=== PATIENT | male | born 1955 | race Caucasian/White ===

== ENCOUNTER 2018-12-01 05:48 | Observation (INO) | payer OTHER ==
--- NOTE | 2018-11-30 14:57 | HP ---
AMENDED REPORT NOW INCLUDES DESIGNATED COSIGNER CC: Dr. Livier Edwards; Dr. Luke Zimmerman * ADMISSION HISTORY AND PHYSICAL: DATE OF ADMISSION: 12/01/18 ATTENDING SURGEON: Dr. Jeferson Queen.* (DICTATED BY RUBY PEDROZA) CHIEF COMPLAINT: Colon polyp. HISTORY OF PRESENT ILLNESS: This is a generally healthy 63-year-old male, who underwent routine screening colonoscopy on 11/12/[address] Zimmerman. This was a followup from prior colonoscopy 5 years earlier. He has had no symptoms in terms of change in his bowel movements or specifically blood in the stool, etc. Findings at the time of colonoscopy included 11 polyps, 10 of which were removed and all benign by pathology. A large lesion at 80 cm from the anal verge was biopsied positive for tubulovillous adenoma and was tattooed for subsequent removal. There was no dysplasia in any of the lesions. There is no family history of colorectal cancer. The patient has also undergone EGD the same date related to GERD symptoms and findings of which included some erosive esophagitis in the distal esophagus and a small hiatal hernia. His omeprazole was increased to 40 mg daily. Of note, he did have some trauma to the uvula from that procedure, which has since improved. The patient was seen in the office by Dr. Queen on 11/20/18. Recommendation has been made for laparoscopic-assisted colon polypectomy with possible partial colectomy. This will also entail intraoperative colonoscopy for localization. Finally, the patient notes the presence of an umbilical hernia, which he did discuss with Dr. Queen and plan will be for primary repair of same at the time of the procedure. The patient understands the indications, risks, benefits and alternatives and would like to proceed as scheduled. PAST MEDICAL HISTORY: Obstructive sleep apnea (did not tolerate CPAP), GERD, colon polyps as noted above, arthritis. He also takes Adderall presumably for ADHD. PAST SURGICAL HISTORY: Previous surgeries include bilateral total knee arthroplasty with Dr. Orlando, prior bilateral knee arthroscopies, bilateral excision of varicose veins. No reported surgical or anesthesia complications. CURRENT MEDICATIONS: 1. Omeprazole 40 mg once daily. 2. Adderall 10 mg 1-1/2 tablets once daily. 3. Viagra or Cialis p.r.n. 4. Amoxicillin prophylaxis for dental procedures, post knee arthroplasty. 5. Tylenol With Codeine No. 3 p.r.n. (ranging from 0 to 2 tablets daily). 6. He also takes the following supplements: Multivitamin, B complex, vitamin B12, vitamin D3, fish oil, vitamin C, and zinc. DRUG ALLERGIES: None (he develops a rash from NEOPRENE topically). FAMILY HISTORY: Negative for anesthesia problems, bleeding or clotting disorders. SOCIAL HISTORY: The patient has tenants/roommates, but also will have his girlfriend helping him in the perioperative period. He is self-employed in construction. He denies use of tobacco. He drinks on average 1 drink per day. He occasionally uses edible marijuana, but not daily and no other recreational drug use. REVIEW OF SYSTEMS: General: No recent constitutional symptoms or acute illnesses. Weight has been stable. HEENT: No problems reported other than the uvula as noted above post EGD. Cardiovascular: No chest pain, palpitations, history of heart murmur, or hypertension. Respiratory: No history of asthma, chronic cough, or shortness of breath. GI: As above per HPI. He notes some increase in intestinal gas with the omeprazole. : No problems reported. Endocrine: No diabetes or thyroid dysfunction. PHYSICAL EXAMINATION GENERAL: Well-nourished, well-developed male, in no acute distress. VITAL SIGNS: Height 78 inches, weight 260 pounds, BMI 30. Temperature 98.2, blood pressure 122/84, pulse 72, respirations 18. HEENT: Pupils are equal, round, and reactive. EOMs intact. No conjunctival pallor. Oropharynx: Teeth in good repair. No intraoral lesions. Mucous membranes moist. NECK: No lymphadenopathy, thyromegaly or masses. LUNGS: Clear to auscultation. No rales or wheezes. HEART: Regular rate and rhythm. No murmur noted. ABDOMEN: Visible umbilical hernia even in the supine position with a fascial defect measuring approximately 2 fingertip breadth width. It is nontender and easily reducible. When he sits up, he demonstrates diastasis recti. The abdomen is otherwise soft, nontender, and without palpable masses or organomegaly. GENITALIA AND RECTAL: Not done (recent groin check for hernias was normal by his PCP). EXTREMITIES: No edema. NEUROLOGICAL: Grossly intact. SKIN: Warm and dry. No suspicious rashes or lesions. IMPRESSION: Colon polyp. PLAN: Laparoscopic-assisted colon polypectomy; possible partial colectomy; intraoperative colonoscopy. RUBY PEDROZA [id number] #: [id number] [facility] CENTERMiriam
[~2018-12-01 05:48] MED LIST: Buffered Lidocaine 1% SYRIN* 1 ML/SYRINGE INTRADERM ONE; ERTApenem(*) 1 GM in NS 0.9% 50 ML* 50 ML IVPB SCH
--- OUTSIDE RECORDS SUMMARY | 2018-12-01 05:52 | XMS REPORT | Continuity of Care Document ---
:1955 External Reference #:[id number] Author Name Kandy Moe Care Team Providers Name Role Phone Livier Edwards MD Primary Care Physician Unavailable Payers Type Date Identification Numbers Payment Provider Subscriber Effective: Policy Number: [id number] [employer] Khadijah Hamm 2016 Medicaid PayID: [id number] [address] [address] [place] [address] Effective: 2015 Policy Number: [id number] [employer] Khadijah Pineda Prelizziestmanda Expires: 2016 PayID: [id number] [address] [address] [place] [address] Effective: 2015 Policy Number: [id number] Medicaid Khadijah Hamm Expires: 2016 Group Name: 1 2 B N [address] PayID: [id number] [place] [address] Advance Directives Description No Information Available Problems Date Description Provider Status Onset: 01/18/2016 Dyspnea Maxi Contreras M.D., Active IAN GRIEDR Onset: 02/02/2016 Localized, primary osteoarthritis Betsy Orlando M.D. Active Onset: 02/19/2016 Disturbance in sleep behavior Tiffany Faustin MD Active Onset: 02/26/2016 Thoracic aortic ectasia Maxi Contreras M.D., Active IAN GRIDER Onset: 05/13/2016 Obstructive sleep apnea syndrome Tiffany Faustin MD Active Onset: 05/13/2016 Obesity Tiffany Faustin MD Active Onset: 05/31/2016 Arthroplasty of knee Betsy Orlando M.D. 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 Family History Date Family Member(s) Problem(s) Comments General non contributory General Heart Disease General Hypertension Father due to Brain Cancer () - age 40, Gliobastoma Mother Varicose veins Mother Arthritis Siblings 1 Brother HTN - at age 65 cardiac issues recently First Brother due to Heart () - Age 65 - Had sleep Disease/Stroke apnea as well First Brother Unknown possible [place] or CVA, sudden age 65 First Brother Obesity First Brother Sleep Apnea First Brother Hypertension Social History Type Date Description Comments Sex Unknown Marital Status Single Lives With Alone 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[employer]) Tobacco Use Start: Unknown Never Smoked Cigarettes ETOH Use Occasionally consumes alcohol 4-8/week Tobacco Use Start: Unknown Patient has never smoked Recreational Drug Use Denies Drug Use Smoking Status Reviewed: 11/30/18 Patient has never smoked Exercise Type/Frequency Exercises regularly Allergies, Adverse Reactions, Alerts Date Description Reaction Status Severity Comments 10/13/2013 NKDA Active 11/30/2018 Neoprene Active rash Medications Medication Date Status Form Strength Qnty SIG Indications Ordering Provider Hydrocodone-Og 11/23/ Active Tablets 5-325mg 12tab 1 or 2 Delmy Childs taminophen 2019 s tablets by MD Chad mouth every 4-6 hours as needed for moderately severe pain Flagyl 11/23/ Active Tablets 500mg 3tabs 1 tab by Delmy Childs 2019 mouth at MD Chad 1:00 at night & 7:00 at night the day before surgery and at 7:00 in the morning the day of surgery Neomycin 11/23/ Active Tablets 500mg 6tabs 2 tabs by Delmy Childs Sulfate 2019 mouth at MD Chad 1:00 at night & 7:00 at night the day before surgery, and at 7:00 in the morning the day of surgery Peg-[id number]/Electr 11/23/ Active Solution 236gm 4000m as directed Delmy Childs olytes 2019 Rec l MD Chad Vitamin D 02/11/ Active Tablets 1000Unit by mouth Maxi Beaulieu 2017 everyday Shubham Contreras, [facility], FASMT Amoxicillin 04/03/ Active Capsules 500mg 4caps take 4 Z47.1 Betsy 2016 pills, 2 g Darion, 1 hour M.D. before dental or gi procedure Fish Oil 02/15/ Active Capsules 1 by mouth Unknown 2016 every day Vitamin B / Active Tablets 1 by mouth Unknown Complex 0000 every day Multivitamin / Active Tablets 1 by mouth Unknown Adult 0000 every day Adderall / Active Tablets 10mg 1-2 tablets Unknown 0000 in afternoon as directed Vitamin C / Active Daily Unknown 0000 Zinc / Active Daily Unknown 0000 Vitamin B-12 / Active Tablets 1 by mouth Unknown 0000 every day Natural Omeprazole / Active Capsules 40mg 1 by mouth Unknown 0000 DR every day Percocet 08/16/ Hx Tablets 5-325mg 90tab 1-2 tabs po Betsy 2015 s hs prn as Darion, needed M.D. MS Contin 07/19/ Hx Tablets ER 15mg 20tab 1 by mouth 7.12 Jose Elias 2015 s at bedtime Damien, 10/09/ M.D. 2015 Warfarin Sodium 07/19/ Hx Tablets 2mg 60tab 1 tablet by 7.12 Betsy 2015 mouth Darion, 10/08/ daily, or M.D. 2015 as dosed per md/visiting nurse service. do not start until after surgery. Colace 07/19/ Hx Capsules 100mg 90cap 1 by mouth M17.12 Betsy 2015 up to 3 Darion, 10/09/ times a day M.D. 2015 as needed for constipatio n. Oxycontin 03/10/ Hx Tab ER 12H 10mg 30tab 1 tab by Jose Elias 2015 - Abuse-Det s mouth twice Damien, 03/10/ a day as M.D. 2016 needed Oxycodone HCL 03/10/ Hx Tablets 5mg 90tab 1-2 tabs by Betsy 2015 s mouth every Darion, 12 hours as M.D. 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 2015 as needed for pain. Colace 02/25/ Hx Capsules 100mg 90cap 1 by mouth M17.11 2015 s up to 3 Bordoni, 05/30/ times a day TEACHER ASST 2015 as needed for constipatio n. Warfarin Sodium 02/25/ Hx Tablets 2mg 60tab 1 tablet by M17.11 2015 s mouth Bordoni, 05/30/ daily, or TEACHER ASST 2015 as dosed per md/visiting nurse service. do not start until after surgery. No Active 12/27/ Hx Unknown Medications 2013 - 2013 Tylenol/Codeine 04/20/ Hx Tablets 300-30mg 40tab 1-2 po q Dirk #3 2011 - s 4-6 hr prn Shantell, 12/27/ pain M.D. 2013 Acetaminophen-C / Hx 1 tab at Unknown odeine #3 0000 - bedtime as 05/30/ needed 2015 Ibuprofen / Hx Tablets 200mg as needed Unknown 0000 - 2015 Vitamin D3 / Hx Tablets 2000Unit 1 by mouth Unknown Super Strength 0000 - every day 2016 Cialis / Hx Tablets 10mg every day Unknown 0000 as needed Gabapentin / Hx Capsules 100mg 1-3 as Unknown 0000 - needed for 11/19/ restless 2016 legs at bedtime Dexamethasone / Hx Tablets 1mg 1 tab at Unknown 0000 - night as 01/11/ needed 2016 Medications Administered in Office Medication Date Status Form Strength Qnty SIG Indications Ordering Provider Celestone 3 mg Administered Injection Jose Elias and 3mg 017 MD Alexey Celestone 3 mg Administered Injection Jose Elias and 3mg 017 MD Alexey Inj, Administered Injection Maxi Beaulieu Regadenoson, 016 Ben, 0.1 MG M.D., F[place], FASNC Technetium TC Administered Injection Maxi Beaulieu 99M 016 Nikole Contreras M.D., F[place], Per Unit Dose FASNC Up To 40 Millicuries Depomedrol Administered Injection Dirk Shantell, 80MG 015 M.D. Depomedrol Administered Injection Dirk Shantell, 80MG 014 M.D. Depomedrol Administered Injection Alvarado, Lien, 80MG 010 PA Depomedrol Administered Injection Alvarado, Lien, 40MG 009 RUBY Immunizations Description No Information Available Vital Signs Date Vital Result Comment 11/30/2018 10:48am Height 78 inches 6'6" Weight 260.00 lb Heart Rate 72 /min BP Systolic Sitting 122 mmHg BP Diastolic Sitting 84 mmHg Respiratory Rate 18 /min Body Temperature 98.2 F BMI (Body Mass Index) 30.0 kg/m2 11/20/2018 10:58am Height 78 inches 6'6" Weight 265.00 lb Heart Rate 88 /min BP Systolic 150 mmHg BP Diastolic 92 mmHg Respiratory Rate 18 /min Body Temperature 98.5 F BMI (Body Mass Index) 30.6 kg/m2 10/31/2017 8:35am Height 78 inches 6'6" Heart Rate 62 /min BP Systolic 122 mmHg BP Diastolic 62 mmHg Respiratory Rate 18 /min Body Temperature 96.9 F Pain Level 3 10/01/2017 9:27am Height 78 inches 6'6" Weight 250.00 lb Heart Rate 60 /min BP Systolic 130 mmHg BP Diastolic 72 mmHg Respiratory Rate 16 /min Body Temperature 97.5 F Pain Level 4 BMI (Body Mass Index) 28.9 kg/m2 02/12/2017 8:22am Height 78 inches 6'6" Weight 263.00 lb Heart Rate 68 /min BP Systolic Sitting 132 mmHg Lue reg cuff BP Diastolic Sitting 80 mmHg Lue reg cuff BP Systolic Standing 128 mmHg Lue reg cuff BP Diastolic Standing 84 mmHg Lue reg cuff Respiratory Rate 16 /min BMI (Body Mass Index) 30.4 kg/m2 Ejection Fraction 60-65% 01/28/2017-echo 01/13/2017 8:10am Height 78 inches 6'6" Weight 250.00 lb Heart Rate 81 /min BP Systolic 122 mmHg BP Diastolic 68 mmHg Body Temperature 96.6 F BMI (Body Mass Index) 28.9 kg/m2 10/09/2016 3:35pm Height 78 inches 6'6" Weight 240.00 lb Pain Level 2 2-4 BMI (Body Mass Index) 27.7 kg/m2 09/06/2016 1:18pm Heart Rate 93 /min BP Systolic 116 mmHg BP Diastolic 76 mmHg Pain Level 3 08/09/2016 11:37am Heart Rate 83 /min BP Systolic 119 mmHg BP Diastolic 65 mmHg Pain Level 5 07/19/2016 1:33pm Height 78 inches 6'6" Weight 250.00 lb Heart Rate 93 /min BP Systolic 118 mmHg BP Diastolic 78 mmHg Pain Level 4 BMI (Body Mass Index) 28.9 kg/m2 05/31/2016 11:18am Height 78 inches 6'6" Weight 250.00 lb Pain Level 2 BMI (Body Mass Index) 28.9 kg/m2 05/13/2016 8:03am Height 78 inches 6'6" Weight 250.00 lb Heart Rate 88 /min BP Systolic 120 mmHg BP Diastolic 78 mmHg Respiratory Rate 14 /min O2 % BldC Oximetry 98 % BMI (Body Mass Index) 28.9 kg/m2 04/03/2016 9:51am Height 78 inches 6'6" Weight 250.00 lb Respiratory Rate 16 /min Pain Level 5 BMI (Body Mass Index) 28.9 kg/m2 03/20/2016 9:54am Height 78 inches 6'6" Weight 248.00 lb Body Temperature 97.0 F Pain Level 6 BMI (Body Mass Index) 28.7 kg/m2 02/26/2016 1:11pm Height 78 inches 6'6" Weight 248.00 lb with showed Heart Rate 82 /min BP Systolic Sitting 114 mmHg L arm reg cuff BP Diastolic Sitting 72 mmHg L arm reg cuff BP Systolic Standing 116 mmHg BP Diastolic Standing 78 mmHg BMI (Body Mass Index) 28.7 kg/m2 Ejection Fraction 55-60% 02/01/16 02/26/2016 9:22am Height 78 inches 6'6" Weight 250.00 lb BP Systolic 110 mmHg BP Diastolic 78 mmHg Pain Level 3 BMI (Body Mass Index) 28.9 kg/m2 02/19/2016 10:49am Height 78 inches 6'6" Weight 250.00 lb Heart Rate 90 /min BP Systolic Sitting 130 mmHg BP Diastolic Sitting 76 mmHg Respiratory Rate 18 /min O2 % BldC Oximetry 94 % BMI (Body Mass Index) 28.9 kg/m2 Neck Circumference in inches 17.5 02/02/2016 1:16pm Height 78 inches 6'6" Weight 250.00 lb Heart Rate 77 /min BP Systolic 118 mmHg BP Diastolic 77 mmHg BMI (Body Mass Index) 28.9 kg/m2 01/18/2016 12:40pm Height 78 inches 6'6" Weight 252.00 lb w/o shoes Heart Rate 108 /min reg BP Systolic 120 mmHg Rue, lg cuff BP Diastolic 76 mmHg Rue, lg cuff BP Systolic Sitting 120 mmHg Lue, lg cuff BP Diastolic Sitting 76 mmHg Lue, lg cuff BP Systolic Standing 110 mmHg Lue BP Diastolic Standing 80 mmHg Lue Respiratory Rate 16 /min BMI (Body Mass Index) 29.1 kg/m2 01/16/2015 8:53am Height 78 inches 6'6" Weight 240.00 lb Heart Rate 83 /min BMI (Body Mass Index) 27.7 kg/m2 03/07/2014 9:17am Height 78 inches 6'6" Weight 250.00 lb Heart Rate 89 /min BP Systolic 127 mmHg BP Diastolic 82 mmHg BMI (Body Mass Index) 28.9 kg/m2 12/27/2013 8:45am Height 78 inches 6'6" Weight 260.00 lb Heart Rate 101 /min BP Systolic 125 mmHg BP Diastolic 76 mmHg BMI (Body Mass Index) 30.0 kg/m2 10/13/2013 3:26pm Height 78 inches 6'6" Weight 250.00 lb Heart Rate 75 /min BP Systolic 137 mmHg BP Diastolic 88 mmHg BMI (Body Mass Index) 28.9 kg/m2 Results Test Date Facility Test Result H/L Range Note Inr/Protime 07/19/2016 [facility] Inr 0.94 N 0.89-1.[address] [place] [address] [phone] Laboratory test 07/19/2016 [facility] Partial 27.7 seconds N 26.0-36.[address] [place] [address] PTT [phone] CBC No Diff 07/19/2016 [facility] White Blood 6.0 10^3/uL N 3.5-10.[address] [place] [address] [phone] Red Blood Count 5.22 10^6/uL N 4.0-5.4 Hemoglobin 15.5 g/dL N 14.0-18.0 Hematocrit 45 % N 42-52 Mean Corpuscular Volume 87 fL N 80-94 Mean Corpuscular Hemoglobin 30 pg N 27-31 Mean Corpuscular HGB Conc 34 g/dL N 31-36 Red Cell Distribution Width 15 % N 10.5-15 Platelet Count 176 10^3/uL N 150-450 Mean Platelet Volume 9 um3 N 7.4-10.4 Basic Metabolic Panel 07/19/2016 [facility] Sodium 138 mmol/L N 133-[address] [place] [address] [phone] Potassium 3.9 mmol/L N 3.5-5.0 Chloride 104 mmol/L N 101-111 Co2 Carbon Dioxide 26 mmol/L N 22-32 Anion Gap 8 mmol/L N 2-11 Glucose 85 mg/dL N 70-100 Blood Urea Nitrogen 17 mg/dL N 6-24 Creatinine 0.91 mg/dL N 0.67-1.17 BUN/Creatinine Ratio 18.7 N 8-20 Calcium 9.5 mg/dL N 8.6-10.3 Egfr Non- 85.3 N >60 Egfr 109.7 N >60 1 Urinalysis Profile 07/19/2016 [facility] Urine Color Lisa [address] [place] [address] [phone] Urine Appearance Clear N Urine Specific [place] 1.031 High 1.010-1.030 Urine pH 5.0 N 5-9 Urine Urobilinogen Negative N Negative Urine Ketones Trace Abnormal Negative Urine Protein Negative N Negative Urine Leukocytes Negative N Negative Urine Blood Negative N Negative Urine Nitrite Negative N Negative Urine Bilirubin Negative N Negative Urine Glucose Negative N Negative Type & Screen 07/19/2016 [facility] Patient Blood Type AB Negative N [address] [place] [address] [phone] Antibody Screen NEGATIVE N Urine Culture And 07/19/2016 [facility] Urine Culture SEE RESULT [address] [place] [address] [phone] CBC No Diff 02/26/2016 [facility] White Blood 3.5 10^3/uL N 3.5-[address] [place] [address] [phone] Red Blood Count 4.76 10^6/uL N 4.0-5.4 Hemoglobin 15.0 g/dL N 14.0-18.0 Hematocrit 44 % N 42-52 Mean Corpuscular Volume 91 fL N 80-94 Mean Corpuscular Hemoglobin 32 pg High 27-31 Mean Corpuscular HGB Conc 35 g/dL N 31-36 Red Cell Distribution Width 13 % N 10.5-15 Platelet Count 195 10^3/uL N 150-450 Mean Platelet Volume 9 um3 N 7.4-10.4 Inr/Protime 02/26/2016 [facility] Inr 0.97 N 0.89-1.[address] [place] [address] [phone] Laboratory test 02/26/2016 [facility] Partial 30.1 seconds N 26.0-36.[address] [place] [address] PTT [phone] Urinalysis 02/26/2016 [facility] Urine Color [place] [address] [phone] Urine Appearance Cloudy N Urine Specific [place] 1.017 N 1.010-1.030 Urine pH 5.0 N 5-9 Urine Urobilinogen Negative N Negative Urine Ketones Negative N Negative Urine Protein Negative N Negative Urine Leukocytes Negative N Negative Urine Blood Negative N Negative Urine Nitrite Negative N Negative Urine Bilirubin Negative N Negative Urine Glucose Negative N Negative Urine Culture And 02/26/2016 [facility] Urine Culture SEE RESULT [address] [place] [address] [phone] Type & Screen 02/26/2016 [facility] Patient Blood AB Negative [address] [place] [address] [phone] Antibody Screen NEGATIVE N Comp Metabolic Panel 02/26/2016 [facility] Sodium 138 mmol/L N 133-[address] [place] [address] [phone] Potassium 4.0 mmol/L N 3.5-5.0 Chloride 104 mmol/L N 101-111 Co2 Carbon Dioxide 26 mmol/L N 22-32 Anion Gap 8 mmol/L N 2-11 Glucose 103 mg/dL High 70-100 Blood Urea Nitrogen 12 mg/dL N 6-24 Creatinine 1.01 mg/dL N 0.67-1.17 BUN/Creatinine Ratio 11.9 N 8-20 Calcium 9.5 mg/dL N 8.6-10.3 Total Protein 7.4 g/dL N 6.4-8.9 Albumin 4.7 g/dL N 3.2-5.2 Globulin 2.7 g/dL N 2-4 Albumin/Globulin Ratio 1.7 N 1-3 Total Bilirubin 0.40 mg/dL N 0.2-1.0 Alkaline Phosphatase 44 U/L N 34-104 Alt 25 U/L N 7-52 Ast 25 U/L N 13-39 Egfr Non- 75.9 N >60 Egfr 97.6 N >60 4 1 Because ethnic data is not always readily available, this report includes an eGFR for both -Americans and non- Americans. The National Kidney Disease Education Program (NKDEP) does not endorse the use of the MDRD equation for patients that are not between the ages of 18 and 70, are , have extremes of body size, muscle mass, or nutritional status, or are non- or non-. According to the National Kidney Foundation, irrespective of diagnosis, the stage of the disease is based on the level of kidney function: Stage Description GFR(mL/min/1.73 m(2)) 1 Kidney damage with normal or decreased GFR 90 2 Kidney damage with mild decrease in GFR 60-89 3 Moderate decrease in GFR 30-59 4 Severe decrease in GFR 15-29 5 Kidney failure <15 (or dialysis) 2 SEE RESULT BELOW Name: NORISKHADIJAH : [address]: Betsy Orlando MD Acct: [id number] Unit: [id number] AGE: 61 Location: [facility] Re07/19/16 SEX: M Status: REG REF SPEC: [id number] RORO: 07/19/16-1525 [facility] DR: Betsy Orlando MD REQ: [id number] RECD: 07/19/16 STATUS: COMP _ SOURCE: URINE SPDESC: ORDERED: Urine Culture QUERIES: Urine Source: Random Procedure Result Reported Site Urine Culture Final 07/21/16- 918 ML No Growth (<1,000 CFU/mL) * ML - MAIN LAB ([facility]) . END OF REPORT * ML=Testing performed at Main Lab DEPARTMENT OF PATHOLOGY, [address] [place] [address] Petr Colbert M.D. Director [facility] # [id number] 3 SEE RESULT BELOW Name: KHADIJAH HAMM : [address]: Betsy Orlando MD Acct: [id number] Unit: [id number] AGE: 60 Location: PAT Re02/26/16 SEX: M Status: REG REF SPEC: [id number] RORO: 02/26/16 [facility] DR: Betsy Orlando MD REQ: [id number] RECD: 02/26/16 STATUS: MOISE MEDINA DR: Livier Edwards MD _ SOURCE: URINE SPDESC: ORDERED: Urine Culture Procedure Result Reported Site Urine Culture Final 02/27/16- 1634 ML No Growth (<1,000 CFU/mL) * ML - MAIN LAB ([facility]) . END OF REPORT * ML=Testing performed at Main Lab DEPARTMENT OF PATHOLOGY, [address] [place] [address] Petr Colbert M.D. Director [facility] # [id number] 4 Because ethnic data is not always readily available, this report includes an eGFR for both -Americans and non- Americans. The National Kidney Disease Education Program (NKDEP) does not endorse the use of the MDRD equation for patients that are not between the ages of 18 and 70, are , have extremes of body size, muscle mass, or nutritional status, or are non- or non-. According to the National Kidney Foundation, irrespective of diagnosis, the stage of the disease is based on the level of kidney function: Stage Description GFR(mL/min/1.73 m(2)) 1 Kidney damage with normal or decreased GFR 90 2 Kidney damage with mild decrease in GFR 60-89 3 Moderate decrease in GFR 30-59 4 Severe decrease in GFR 15-29 5 Kidney failure <15 (or dialysis) Procedures Date Code Description Status 09/28/2018 96573 Allergy Test, Patch Or Application Completed 09/28/2018 23054 Allergy Test, Patch Or Application Completed 10/01/2017 77859 Inject/Drain Joint/Bursa Major W/O US Completed 02/12/2017 80377 EKG Tracing & Interpretation Completed 01/28/2017 12999 ECHO Transthoracic, Real-Time 2D With Doppler And Color Completed Flow 07/25/2016 66581 TKR Total Knee Replacement Completed 07/25/2016 19860 TKR Total Knee Replacement Completed 07/19/2016 15221 EKG, Interpretation Only Completed 05/01/2016 22395 Sleep Study Unattended,HRT Rate,Oxygen Sat,Resp Completed Effort/Airflow 03/07/2016 15630 TKR Total Knee Replacement Completed 03/07/2016 98758 TKR Total Knee Replacement Completed 02/19/2016 52362 Stress Test Completed 02/19/2016 54802 Myocardial Perfusion Imaging Tomographic (Spect) Multiple Completed Studies 02/01/2016 35091 ECHO Transthoracic, Real-Time 2D With Doppler And Color Completed Flow 01/18/2016 51759 EKG Tracing & Interpretation Completed 01/16/2015 72525 Inject/Drain Joint/Bursa Major W/O US Completed 03/07/201407955 Inject/Drain Joint/Bursa Major W/O US Completed 10/13/2013 84720 Rad Exam; Ankle Comp Completed 10/13/2013 71877 Xray Knee 3 Views Completed 10/13/2013 02069 Xray Knee 3 Views Completed 10/13/2013 59152 Rad Exam; Knee, Ap&L Completed 10/13/2013 98017 Rad Exam; Knee, Ap&L Completed 01/02/2011 62388 Rad Exam; Both Knees, Standing Ap Completed 04/18/201084761 Inject/Drain Joint/Bursa Major W/O US Completed 04/18/201019064 Inject/Drain Joint/Bursa Major W/O US Completed 10/09/200954904 Inject/Drain Joint/Bursa Major W/O US Completed 10/09/200948294 Inject/Drain Joint/Bursa Major W/O US Completed 09/15/2009 55909 Rad Exam; Both Knees, Standing Ap Completed Encounters Type Date Location Provider Dx Diagnosis Office Visit 11/20/2018 [facility], 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 right shoulder M19.212 Secondary osteoarthritis, left shoulder S46.091A Inj musc/tend the rotator cuff of right shoulder, init S46.092A Inj musc/tend the rotator cuff of left shoulder, init Office Visit 10/01/2017 Orthopedic Jose Elias M19.211 Secondary 9:00a Services Of MD Alexey osteoarthritis, C.M.A. right shoulder M19.212 Secondary osteoarthritis, left shoulder S46.091A Inj musc/tend the rotator cuff of right shoulder, init S46.092A Inj musc/tend the rotator cuff of left shoulder, init Office Visit 04/08/2017 10:10a [facility] John Jha MD L72.0 Epidermal cyst L57.0 Actinic keratosis D22.5 Melanocytic nevi of trunk L82.1 Other seborrheic keratosis Office Visit 02/12/2017 8:45a [facility] Maxi Beaulieu I77.810 Thoracic aortic Of Sheri Contreras M.D., ectasia CHEO, [facility] Office Visit 01/13/2017 8:00a Orthopedic Betsy Orlando, Z47.1 Aftercare Services Of Shubham following joint C.M.A. replacement surgery M25.562 Pain in left knee Z96.652 Presence of left artificial knee joint M17.12 Unilateral primary osteoarthritis, left knee Office Visit 05/31/2016 11:15a Orthopedic Services Betsy Orlando M25.562 Pain in left Of C.M.A. M.D. knee M17.12 Unilateral primary osteoarthritis, left knee Z96.651 Presence of right artificial knee joint Office Visit 05/13/2016 8:00a Pulmonology And Tiffany G47.33 Obstructive sleep Sleep Services Of MD Ramin apnea (adult) [facility] (pediatric) E66.09 Other obesity due to excess calories [facility].810 Thoracic aortic 1:15p Of Sheri Contreras M.D., diego GRIDER, [facility] Office Visit 02/19/2016 Pulmonology And Tiffany G47.9 Sleep disorder, 10:30a Sleep Services Of MD Ramin unspecified [facility] Office Visit 02/02/2016 Orthopedic Betsy Orlando, M17.0 Bilateral primary 1:00p Services Of Shubham osteoarthritis of C.M.A. knee M25.562 Pain in left knee M25.561 Pain in right knee Office Visit 01/18/2016 1:00p [facility] Maxi Beaulieu R06.02 Shortness of Of [facility] Shubham Contreras, breath FAC, [facility] Office Visit 01/16/2015 8:15a Orthopedic Sage Stinson 716.96 Arthropathy Unspec Services Of M.D. Lower Leg C.M.A. 715.36 Osteoarthrosis Localzd Not Spec Prime Or 2Ndy Lower Leg 719.06 Effusion Joint Lower Leg Office Visit 03/07/2014 9:00a Orthopedic Sage Stinson 716.96 Arthropathy Services Of M.D. Unspec Lower Leg C.M.A. Office Visit 12/27/2013 8:30a Orthopedic Sage Stinson 719.46 Pain Joint Lower Services Of M.D. Leg C.M.A. Office Visit 10/13/2013 3:00p Orthopedic Jose Elias 719.46 Pain Joint Lower Services Of Shubham Quezada Leg C.M.A. 715.96 Osteoarthrosis Unspec Genlzd Or Localized Lower Leg 736.79 Deform[facility] Ankle & Foot Other Acquired Office Visit 01/02/2011 2:45p Orthopedic Sage Stinson 716.96 Arthropathy Unspec Services Of M.D. Lower Leg C.M.A. Office Visit 04/18/2010 3:30p Orthopedic Elise Alvarado 716.96 Arthropathy Unspec Services Of [place] Lower Leg C.M.A. Office Visit 09/15/2009 3:00p Orthopedic Elise Alvarado 716.96 Arthropathy Unspec Services Of [place] Lower Leg C.M.A. Plan of Treatment Future Appointment(s):12/01/2018 7:30 am - Dem[facility] [facility] 7:30 am - Jeferson Queen MD, FACS at [facility]01/25/2019 7:30 am - Tiffany Faustin MD at [facility]11/30/2018 - Dwight Bennett, PAD12.3 Benign neoplasm of transverse qhyqlG67.818 Encounter for other preprocedural examination
--- OUTSIDE RECORDS SUMMARY | 2018-12-01 05:52 | XMS REPORT | Continuity of Care Document ---
:1955 External Reference #:[id number] Author Name Kandy Moe Care Team Providers Name Role Phone Livier Edwards MD Primary Care Physician Unavailable Payers Type Date Identification Numbers Payment Provider Subscriber Effective: Policy Number: [id number] [employer] Khadijah Hamm 2016 Medicaid PayID: [id number] [address] [address] [place] [address] Effective: 2015 Policy Number: [id number] [employer] Khadijah Pineda Prelizziestmanda Expires: 2016 PayID: [id number] [address] [address] [place] [address] Effective: 2015 Policy Number: [id number] Medicaid Khadijah Hamm Expires: 2016 Group Name: 1 2 B N [address] PayID: [id number] [place] [address] Advance Directives Description No Information Available Problems Date Description Provider Status Onset: 01/18/2016 Dyspnea Maxi Contreras M.D., Active IAN GRIDER Onset: 02/02/2016 Localized, primary osteoarthritis Betsy Orlando [...] apnea as well First Brother Unknown possible AL or CVA, sudden age 65 First Brother Obesity First Brother Sleep Apnea First Brother Hypertension Social History Type Date Description Comments Sex Unknown Marital Status Single Lives With Alone Occupation [employer] Tobacco Use Start: Unknown Never Smoked Cigarettes ETOH Use Occasionally consumes alcohol 4-8/week Tobacco Use Start: Unknown Patient has never smoked Recreational Drug Use Denies Drug Use Smoking Status Reviewed: 11/20/18 Patient has never smoked Exercise Type/Frequency Exercises regularly Allergies, Adverse Reactions, Alerts Date Description Reaction Status Severity Comments 10/13/2013 NKDA Active 12/27/2013 Latex Active Medications Medication Date Status Form Strength Qnty SIG Indications Ordering Provider Vitamin D 02/11/ Active Tablets 1000Unit by mouth Maxi Beaulieu 2017 everyday Shubham Contreras, [facility], [facility] Amoxicillin 04/03/ Active Capsules 500mg 4caps take 4 Z47.1 2015 pills, 2 g Darion, 1 hour M.D. before dental or gi procedure Fish Oil 02/15/ Active Capsules 1 by mouth Unknown 2016 every day Vitamin B /00/ Active Tablets 1 by mouth Unknown Complex 0000 every day Cialis 00/ Active Tablets 10mg every day Unknown 0000 as needed Multivitamin 00/00/ Active Tablets 1 by mouth Unknown Adult 0000 every day Adderall 0000/ Active Tablets 10mg 1-2 Unknown 0000 tablets in afternoon as directed Vitamin C 00/ Active Daily Unknown 0000 Zinc 0000/ Active Daily Unknown 0000 Percocet 08/16/ Hx Tablets 5-325mg 90tabs 1-2 tabs 2015 po qhs prn Darion, as needed M.D. MS Contin 07/19/ Hx Tablets ER 15mg 20tabs 1 by mouth M17.12 Jose Elias 2015 - at bedtime Damien 10/09/ MvAi 2015 Warfarin Sodium 07/19/ Hx Tablets 2mg 60tabs 1 tablet M17.12 2015 - by mouth Darion, 10/08/ daily, or M.D. 2015 as dosed per md/reji g nurse service. do not start until after surgery. Colace 07/19/ Hx Capsules 100mg 90caps 1 by mouth M17.12 Besty 2015 - up to 3 Darion, 10/09/ times a M.D. 2015 day as needed for constipati on. Oxycontin 03/10/ Hx Tab ER 12H 10mg 30tabs 1 tab by Jose Elias 2015 - Abuse-Det mouth Damien, 03/10/ twice a M.D. 2015 day as needed Oxycodone HCL 03/10/ Hx Tablets 5mg 90tabs 1-2 tabs Betsy 2015 by mouth Darion, every 12 M.D. hours as needed for break thru pain MS Contin 03/10/ Hx Tablets ER 15mg 28tabs 1 by mouth Fani 2015 - twice a Bordoni, 04/03/ day TELECOMMUNICATIONS OPERATOR 2015 Oxycodone-Aceta 02/25/ Hx Tablets 5-325mg 90tabs 1-2 by 7.11 Betsy ortiz 2015 - mouth Darion, 10/09/ every 4-6 M.D. 2016 hours as needed for pain. Colace 02/25/ Hx Capsules 100mg 90caps 1 by mouth 7.11 Fani 2015 - up to 3 Bordoni, 05/30/ times a TELECOMMUNICATIONS OPERATOR 2015 day as needed for constipati on. Warfarin Sodium 02/25/ Hx Tablets 2mg 60tabs 1 tablet 7.11 Fani 2015 - by mouth Bordoni, 05/30/ daily, or TELECOMMUNICATIONS OPERATOR 2015 as dosed per md/reji g nurse service. do not start until after surgery. No Active 12/27/ Hx Unknown Medications 2013 - 2013 Tylenol/Codeine 04/20/ Hx Tablets 300-30mg 40tabs 1-2 po q Dirk #3 2011 - 4-6 hr prn Shantell, 12/27/ pain M.D. 2013 Acetaminophen-C 00/ Hx 1 tab at Unknown odeine #3 0000 - bedtime as 05/30/ needed 2015 Ibuprofen / Hx Tablets 200mg as needed Unknown 0000 - 2015 Vitamin D3 / Hx Tablets 2000Unit 1 by mouth Unknown Super Strength 0000 - every day 2016 Gabapentin / Hx Capsules 100mg 1-3 as Unknown 0000 - needed for 11/19/ restless 2016 legs at bedtime Dexamethasone / Hx Tablets 1mg 1 tab at Unknown 0000 - night as needed 2015 Medications Administered in Office Medication Date Status Form Strength Qnty SIG Indications Ordering Provider Celestone 3 mg Administered Injection Jose Elias and 3mg 017 MD Alexey Celestone 3 mg Administered Injection Jose Elias and 3mg 017 MD Alexey Inj, Administered Injection Maxi Christofer Regadenoson, 016 Ben, 0.1 MG M.D., FACC, FASNC Technetium TC Administered Injection Maxi Beaulieu 99M 016 Ben Tetrofosmin, M.D., FACC, Per Unit Dose FASNC Up To 40 Millicuries Depomedrol Administered Injection Dirk Shantell, 80MG 015 M.D. Depomedrol Administered Injection Dirk Shantell, 80MG 014 M.D. Depomedrol Administered Injection Alvarado, Lien, 80MG 010 PA Depomedrol Administered Injection Alvarado, Lien, 40MG 009 PA Immunizations Description No Information Available Vital Signs Date Vital Result Comment 11/20/2018 10:58am Height 78 inches 6'6" Weight [...] Test Result H/L Range Note Inr/Protime 07/19/2016 [facility] Inr 0.94 N 0.89-1.[address] [place] [address] [phone] Laboratory test 07/19/2016 [facility] Partial 27.7 seconds N 26.0-36.[address] [place] [address] PTT [phone] CBC No Diff 07/19/2016 [facility] White Blood 6.0 10^3/uL N 3.5-10.[address] [place] [address] [phone] Red Blood Count 5.22 10^6/uL N 4.0-5.4 [...] um3 N 7.4-10.4 Basic Metabolic Panel 07/19/2016 [facility] Sodium 138 mmol/L N 133-[address] [place] [address] [phone] Potassium 3.9 mmol/L N 3.5-5.0 Chloride 104 mmol/L N 101-111 Co2 Carbon Dioxide 26 mmol/L N 22-32 Anion Gap 8 mmol/L N 2-11 Glucose 85 mg/dL N 70-100 Blood Urea Nitrogen 17 mg/dL N 6-24 Creatinine 0.91 mg/dL N 0.67-1.17 BUN/Creatinine Ratio 18.7 N 8-20 Calcium 9.5 mg/dL N 8.6-10.3 Egfr Non- 85.3 N >60 Egfr 109.7 N >60 1 Urinalysis Profile 07/19/2016 [facility] Urine Color Lisa [address] [place] [address] [phone] Urine Appearance Clear N Urine Specific Munger 1.031 High 1.010-1.030 Urine pH 5.0 N 5-9 Urine Urobilinogen Negative N Negative Urine Ketones Trace Abnormal Negative Urine Protein Negative N Negative Urine Leukocytes Negative N Negative Urine Blood Negative N Negative Urine Nitrite Negative N Negative Urine Bilirubin Negative N Negative Urine Glucose Negative N Negative Type & Screen 07/19/2016 [facility] Patient Blood Type AB Negative N [address] [place] [address] [phone] Antibody Screen NEGATIVE N Urine Culture And 07/19/2016 [facility] Urine Culture SEE RESULT [address] [place] [address] [phone] CBC No Diff 02/26/2016 [facility] White Blood 3.5 10^3/uL N 3.5-[address] Count .8 [place], [place] [id number] [phone] Red Blood Count 4.76 10^6/uL N 4.0-5.4 Hemoglobin 15.0 g/dL N 14.0-18.0 Hematocrit 44 % N 42-52 Mean Corpuscular Volume 91 fL N 80-94 Mean Corpuscular Hemoglobin 32 pg High 27-31 Mean Corpuscular HGB Conc 35 g/dL N 31-36 Red Cell Distribution Width 13 % N 10.5-15 Platelet Count 195 10^3/uL N 150-450 Mean Platelet Volume 9 um3 N 7.4-10.4 Inr/Protime 02/26/2016 [facility] Inr 0.97 N 0.89-1.[address] [place] [address] [phone] Laboratory test 02/26/2016 [facility] Partial 30.1 seconds N 26.0-36.[address] [place] [address] PTT [phone] Urinalysis 02/26/2016 [facility] Urine Color Yellow N Profile [address] [place] [address] [phone] Urine Appearance Cloudy N Urine Specific Munger 1.017 N 1.010-1.030 Urine pH 5.0 N 5-9 Urine Urobilinogen Negative N Negative Urine Ketones Negative N Negative Urine Protein Negative N Negative Urine Leukocytes Negative N Negative Urine Blood Negative N Negative Urine Nitrite Negative N Negative Urine Bilirubin Negative N Negative Urine Glucose Negative N Negative Urine Culture And 02/26/2016 [facility] Urine Culture SEE RESULT [address] [place] [address] [phone] Type & Screen 02/26/2016 [facility] Patient Blood AB Negative N [address] [place] [address] [phone] Antibody Screen NEGATIVE N Comp Metabolic Panel 02/26/2016 [facility] Sodium 138 mmol/L N 133-[address] [place] [address] [phone] Potassium 4.0 mmol/L N 3.5-5.0 Chloride 104 [...] (or dialysis) 2 SEE RESULT BELOW Name: KHADIJAH HAMM : [address]: Betsy Orlando MD Acct: [id number] Unit: [id number] AGE: 61 Location: [facility] Re07/19/16 SEX: M Status: REG REF SPEC: [id number] RORO: 07/19/16-[address]: Betsy Orlando MD REQ: [id number] RECD: 07/19/16 STATUS: COMP _ SOURCE: URINE SPDESC: ORDERED: Urine Culture QUERIES: Urine Source: Random Procedure Result Reported Site Urine Culture Final 07/21/16- 918 ML No Growth (<1,000 CFU/mL) * ML - MAIN LAB ([facility]) . END OF REPORT * ML=Testing performed at Main Lab DEPARTMENT OF PATHOLOGY, [address] [place] [address] Petr Colbert M.D. Director [facility] # [id number] 3 SEE RESULT BELOW Name: KHADIJAH HAMM : [address]: Betsy Orlando MD Acct: [id number] Unit: [id number] AGE: 60 Location: [facility] Re02/26/16 SEX: M Status: REG REF SPEC: [id number] RORO: 02/26/[address]: Betsy Orlando MD REQ: [id number] RECD: 02/26/16 STATUS: COMP [address] DR: Livier Edwards MD _ SOURCE: URINE SPDESC: ORDERED: Urine Culture Procedure Result Reported Site Urine Culture Final 02/27/16- 1634 ML No Growth (<1,000 CFU/mL) * ML - MAIN LAB ([facility]) . END OF REPORT * ML=Testing performed at Main Lab DEPARTMENT OF PATHOLOGY, [address] [place] [address] Petr Colbert M.D. Director [facility] # [id number] 4 Because ethnic data is not always [...] dialysis) Procedures Date Code Description Status 09/28/2018 40386 Allergy Test, Patch Or Application Completed 09/28/2018 96312 Allergy Test, Patch Or Application Completed 10/01/201720198 Inject/Drain Joint/Bursa Major W/O US Completed 02/12/2017 93952 EKG Tracing & Interpretation Completed 01/28/2017 72605 ECHO Transthoracic, Real-Time 2D With Doppler And Color Completed Flow 07/25/2016 19960 TKR Total Knee Replacement Completed 07/25/2016 12620 TKR Total Knee Replacement Completed 07/19/2016 10039 EKG, Interpretation Only Completed 05/01/2016 86586 Sleep Study Unattended,HRT Rate,Oxygen Sat,Resp Completed Effort/Airflow 03/07/2016 70461 TKR Total Knee Replacement Completed 03/07/2016 11603 TKR Total Knee Replacement Completed 02/19/2016 56324 Stress Test Completed 02/19/2016 58265 Myocardial Perfusion Imaging Tomographic (Spect) Multiple Completed Studies 02/01/2016 64593 ECHO Transthoracic, Real-Time 2D With Doppler And Color Completed Flow 01/18/2016 08328 EKG Tracing & Interpretation Completed 01/16/201567761 Inject/Drain Joint/Bursa Major W/O US Completed 03/07/201422350 Inject/Drain Joint/Bursa Major W/O US Completed 10/13/2013 25595 Rad Exam; Ankle Comp Completed 10/13/2013 90459 Xray Knee 3 Views Completed 10/13/2013 72825 Xray Knee 3 Views Completed 10/13/2013 23924 Rad Exam; Knee, Ap&L Completed 10/13/2013 85930 Rad Exam; Knee, Ap&L Completed 01/02/2011 26871 Rad Exam; Both Knees, Standing Ap Completed 04/18/2010 Inject/Drain Joint/Bursa Major W/O US Completed 04/18/2010 Inject/Drain Joint/Bursa Major W/O US Completed 10/09/2009 Inject/Drain Joint/Bursa Major W/O US Completed 10/09/2009 Inject/Drain Joint/Bursa Major W/O US Completed 09/15/2009 36407 Rad Exam; Both Knees, Standing Ap Completed Encounters Type Date Location Provider Dx Diagnosis Office Visit 10/01/2018 [facility] Dermatology John Jha MD L23.9 Allergic contact 9:40a dermatitis, unspecified cause Office Visit 09/30/2018 [facility] Dermatology John Jha MD L23.9 Allergic contact 8:10a dermatitis, unspecified cause Office Visit 09/16/2018 [facility] Dermatology John Jha MD H01.132 Eczematous 8:50a dermatitis of right lower [...] left shoulder, init Office Visit 04/08/2017 10:10a 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 (pediatric) E66.09 Other obesity due to excess calories Office Visit 02/26/2016 [facility] Maxi Christofer I77.810 Thoracic aortic 1:15p Of [facility] Shubham Contreras, ectasia [facility], [facility] Office Visit 02/19/2016 Pulmonology And Tiffany G47.9 Sleep disorder, 10:30a Sleep Services Of MD Ramin unspecified 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 715.36 Osteoarthrosis Localzd Not Spec Prime Or 2Ndy Lower Leg 719.06 Effusion Joint Lower Leg Office Visit 03/07/2014 9:00a Orthopedic Sage Stinson 716.96 Arthropathy Services Of Shubham Unspec Lower Leg C.M.A. Office Visit 12/27/2013 8:30a Orthopedic Sage Stinson 719.46 Pain Joint Lower Services Of Sh[facility]ham Leg C.M.A. Office Visit 10/13/2013 3:00p Orthopedic Jose Elias 719.46 Pain Joint Lower Services Of Shubham Quezada Leg C.M.A. 715.96 Osteoarthrosis Unspec Genlzd Or Localized Lower Leg 736.79 Deformity Ankle & Foot Other Acquired Office Visit 01/02/2011 2:45p Orthopedic Sage Stinson 716.96 Arthropathy Unspec Services Of M.DToy Lower Leg C.M.A. Office Visit 04/18/2010 3:30p Orthopedic Elise Alvarado 716.96 Arthropathy Unspec Services Of [place] Lower Leg C.M.A. Office Visit 09/15/2009 3:00p Orthopedic Jenny Vikamason, 716.96 Arthropathy Unspec Services Of RUBY Lower Leg Francia Plan of Treatment Future Appointment(s):12/01/2018 10:00 am - Jeferson Queen MD, FACS at [facility]11/30/2018 10:30 am - RUBY Amanda at [facility]11/20/2018 - Jeferson Queen MD, FACSD12.3 Benign neoplasm of transverse colonRecommendations:surgical removal
--- OUTSIDE RECORDS SUMMARY | 2018-12-01 05:53 | XMS REPORT | Continuity of Care Document ---
:1955 External Reference #:[id number] Author Name LESTER Waters-Keturah Address [address] [place] [address] Care Team Providers Name Role Phone Livier Edwards M.D. Primary Care Physician Unavailable Payers Type Date Identification Numbers Payment Provider Subscriber Effective: Policy Number: [id number] [facility] Khadijah Chaney 2015 Expires: 2016 Group Name: BC/BS of [facility] [address] [address] PayID: [id number] JW Coleman [id number] Effective: 2013 Policy Number: [facility] Khadijah Chaney [id number] Med Expires: 2015 PayID: [id number] [place] [address] Policy Number: [id number] [facility] Khadijah Chaney PayID: [id number] [address] [place] [address] Advance Directives Description No Information Available Problems Description No Information Family History Date Family Member(s) Problem(s) Comments Father Varicosities : (age Father due to Cancer glioblastoma 40 Years) (Brain) Mother Varicose Veins Mother Arthritis Children 1 First Son Non Contributory First Son ADHD Siblings 1 First Brother Hypertension , obesity First Brother Sudden ? CA or CVA- age 65 First Brother Sleep Apnea Paternal Grandfather due to Unknown () Causes Paternal Grandmother due to Unknown () Causes Maternal Grandfather due to In The () War Maternal Grandmother due to Unknown () - over 100 Causes years old Social History Type Date Description Comments Sex Unknown Marital Status Lives With Alone Occupation [employer], additions. Self employed. Tobacco Use Start: Unknown Never Smoked Cigarettes Tobacco Use Start: Unknown End: Former Cigar Smoker, none since around 2010, Unknown smoked an Occasional would only smoke one Cigar cigar once per year. Never habitual smoker. ETOH Use Drinks 1-2 Drinks A Day. cocktails Allergies, Adverse Reactions, Alerts Description No Known Drug Allergies Medications Medication Date Status Form Strength Qnty SIG Indications Ordering Provider Carafate 11/13 Active Suspension 1GM/10ML 420ml 10ml by J02.9 Shawnti mouth four R. Storm, times daily ACCIDENT INVESTIGATOR-C if needed Lidocaine 11/13 Active Solution 2% 30ml paint up to J02.9 [place] 1 teaspoon R. Storm, on the sore ACCIDENT INVESTIGATOR-C area three times a day as needed Zaditor 09/01 Active Solution 0.025% 30ml instill 1 drop into Naz affected III, eye 2 times ACCIDENT INVESTIGATOR-C per day for inflammatio n of eyelid lining due to allergy Omeprazole 08/[address] 20mg 30cap 1 by mouth R12 s every day P. On Empty Blegen, Stomach For M.D. Heartburn Vitamin D-3 12/15 Active Tablets 5000Unit 1 by mouth Livier every day P. for vitamin Blegen, d M.D. deficiency Vitamin B-12 09/30 Active Tablets 1000mcg 1 by mouth Livier every other P. day- Blegen, sublingual- M.D. for vitamin b12 deficiency Acetaminophen-Co 03/26 Active Tablets 300-30mg 30tab 1 by mouth Livier benítez #3 s at night as P. needed for Blegen, severe pain M.D. Fish Oil 02/26 Active Capsules 1000mg 1 by mouth Livier every day P. (on hold Blegen, for M.D. upcoming surgery) Vitamin C 02/26 Active Tablets 500mg 1 by mouth Livier every day P. Blegen, M.D. Zinc 02/26 Active Tablets 50mg with Livier magnesium P. and Blegen, calcium- 1 M.D. by mouth every day Multiple 12/08 Active Tablets Livier P. Blegen, M.D. Adderall 01/15 Active Tablets 10mg 60tab take 1 to 2 s tablets by P. mouth one Blegen, time daily M.D. in the afternoon as directed - maximum daily dose of 2 per day Azelastine HCL 09/01 Hx Solution 0.05% 6ml 1 gtt into H01.119 Alonso (Ophthalmic) both eyes Naz - twice daily III, 09/01 ACCIDENT INVESTIGATOR-C Amoxicillin 02/04 Hx Capsules 500mg 8caps 4 by mouth x 1 dose 2 P. - hours prior Blegen, 09/01 to dental M.D. visit as directed Amoxicillin 02/17 Hx Capsules 500mg 8caps 4 by mouth x 1 dose 2 P. - hours prior Blegen, 11/26 to dental M.D. visit as directed Ranitidine HCL 12/23 Hx Tablets 150mg 60tab take 1 R12 s tablet by P. - mouth twice Blegen, 08/08 a day for .D. heartburn Azithromycin 12/23 Hx Tablets 500mg 2tabs take 2 tabs Z71.9 by mouth X P. - 1 Dose For Blegen, 02/16 Travelers . Diarrhea Doxycycline 09/13 Hx Capsules 100mg 2caps 2 PO X 1 Livier Dose With P. - Full Glass Blegen, 01/01 Of Water M.D. For Tick Bite Vitamin D3 09/02 Hx Tablets 2000Unit 4000 Iu Per Livier Day P. - Blegen, 12/15 M.D. Vitamin 04/03 Hx Tablets every day [facility] B P. - Blegen, 09/30 M.D. Ergocalciferol 02/09 Hx Capsules [id number] 4caps one by Livier mouth once P. - per week Blegen, 01/02 M.D. Cialis 01/16 Hx Tablets 10mg 5tabs one to two by mouth no P. - more often Blegen, 02/26 then every M.D. 72 hours as needed as directed Viagra 12/30 Hx Tablets 50mg 12tab take 1/2 to s 1 tablet by P. - mouth Blegen, 01/16 before M.D. intercourse as directed Gabapentin 12/30 Hx Capsules 100mg 60cap take 1-3 s capsules by P. - mouth at Blegen, 01/02 bedtime as M.D. needed for restless legs symptoms Cialis 12/28 Hx Tablets 20mg 14tab 1/2 po up s to once per P. - day up to 3 Blegen, 12/30 times per M.D. week as needed for ED Zostavax 12/28 Hx Solution [id number]/ 1unit shingles Z00.01 Rec 0.65ML s vaccine as P. - directed Blegen, 01/01.D. Dexamethasone 10/03 Hx Tablets 1mg 1tabs take one by D44.11 mouth at 11 P. - at night as Blegen, 01/02 directed, .D. then get your bloodwork at 8 am Hydrocodone-Acet 07/30 Hx Tablets 5-325mg 10ten 1 po qDAY Livier aminophen prn severe P. - pain Blegen, 10/03.D. Vivotif Dana 07/[address] rosario typhoid Livier Vaccine vaccine- 1 P. - cap po with Blegen, 10/02 lukewarm .. water 1 hour before eating every other day for 4 doses- start at least 2 weeks prior Ciprofloxacin 07/07 Hx Tablets 500mg 10tab 1 by mouth Livier HCL s twice a day P. - x 5 days if Blegen, 10/02 needed for M.D. traveller's diarrhea Chloroquine 07/07 Hx Tablets 500mg 8tabs 1 po q week V65.49 Livier Phosphate 2 weeks P. - prior to Blegen, 10/02 travel, .. once per week while in country and continue once per week for 4 weeks after return Sulfamethoxazole 07/07 Hx Tablets 800-160mg 14tab 1 by mouth 682.2 Livier /Trimethoprim DS s twice a day P. - x 7 days Blegen, 10/02 For Abscess M.D. Tylenol With 04/11 Hx Tablets 300-30mg 30tab 1 by mouth M25.561 Livier Codeine #3 /2013 s at night at P. - bedtime as Blegen, 03/26 needed M.D. severe pain Hydrocodone/Acet 12/24 Hx Tablets 5-325mg 10ten 1 po q 6 Crystal aminophen /2013 hrs prn Reg, - ACCIDENT INVESTIGATOR-C 07/30 Cyclobenzaprine 12/13 Hx Tablets 5mg 40tab 1-2 po tid Crystal HCL s for muscle Reg, - spasm, february ACCIDENT INVESTIGATOR-C 10/03 cause drowsiness Meloxicam 12/13 Hx Tablets 7.5mg 60tab 1 po bid Crystal s for back Reg, - pain, take ACCIDENT INVESTIGATOR-C 10/03 with food Zostavax 12/03 Hx Solution [id number]/ 1unit shingles Rec 0.65ML s vaccine as P. - directed Blegen, 10/02 M.D. Robitussin ac 11/25 Hx 4Ounc 1-2 466.0 es teaspoon po P. - qhs prn Blegen, 10/02 severe M.D. cough Ergocalciferol 09/15 Hx Capsules [id number] 4caps one po once per week as P. - directed x Blegen, 10/03 3 months M.D. for vitamin D deficiency- then recheck bloodwork Tylenol/Codeine 03/10 Hx Tablets 300-30mg 20tab 1 po qhs M25.561 Livier #3 s prn severe P. - pain Blegen, 06/03 M.D. No Active 02/02 Hx Unknown Medications /2012 - 02/02 Triamcinolone 02/02 Hx Cream 0.1% 30uni apply two Livier Acetonide ts times a day P. - to rash on Blegen, 10/03 forearms M.D. for up to 2 weeks Azithromycin 01/11 Hx Tablets 250mg 6tabs 2 po qd Livier first day P. - then 1 po Blegen, 04/09 qd x 4 days M.D. No Active 10/08 Hx P. - Blegen, 01/11 M.D. Medrol Dosepak 10/01 Hx Tablets 4mg 1tabs use as directed, P. - take with Blegen, 10/08 food M.D. Patanol 07/24 Hx Solution 0.1% 5ml one to two gtts ou bid P. - prn Blegen, 10/08 allergic M.D. conjunctiv itis Viagra 05/31 Hx Tablets 100mg 6tabs 2-1 tab before Ndiaye, - intercourse M.D. 10/08 Cialis 05/31 Hx Tablets 20mg 10tab 10/28 to 1 qd s prn Ndiaye, - M.D. 10/08 Vicoprofen 02/19 Hx Tablets 7.5mg;200 30tab one po qhs Crystal /2004 mg s prn knee Soboroff, - pain M.D. 09/06 Adderall XR 12/25 Hx Capsules 30mg 90cap one po qd s P. - Blegen, 10/08 Code B M.D. Concerta 11/27 Hx Tablets 18mg 60tab one po qd s for 1 week P. - then two po Blegen, 01/15 qd if M.D. tolerated Vicodin 12/12 Hx 5/500 20uni one to two 724.5 Cyndy /2003 ts tabs po q A. - 4-6 hours , 05/13 prn severe [facility] /2004 back pain. Physical Therapy 12/12 Hx evaluate 724.5 Cyndy /2003 and treat A. - low back 09/06 pain With [facility] Radiculopat hy Medications Administered in Office Medication Date Status Form Strength Qnty SIG Indications Ordering Provider Injection, Administered Injection Riri BurroughsMedjaret 20 009 M.D. MG Immunizations CPT Code Status Date Vaccine Lot # [id number] Given 09/30/2017 Influenza Virus Vaccine, Quadrivalent, 3 Yr > Quad, Preserv Free 37382 Given 12/23/2016 Hep B Vaccine Adult, 3 Dose age >20 yrs [id number] 59679 Given 12/23/2016 Hepatitis A, Adult [id number] 82392 Given 10/23/2015 Influenza Virus Vaccine, Quadrivalent, 3 Yr > Quad, Preserv Free 11946 Given 01/18/2015 Zoster Vaccine [id number] 61866 Given 08/10/2014 Hep B Vaccine Adult, 3 Dose age >20 yrs [id number] 16162 Given 07/07/2014 Hep B Vaccine Adult, 3 Dose age >20 yrs [id number] 51239 Given 07/07/2014 Tdap (Adacel) [id number] 99041 Given 07/07/2014 Influenza Virus Vaccine, Quadrivalent, 3 Yr > [id number] Quad, Preserv Free 13153 Given 07/07/2014 Hepatitis A, Adult [id number] 41136 Given 09/06/2008 Tdap (Adacel) [id number] 79687 Given 09/26/1994 DT (Adult) Vital Signs Date Vital Result Comment 11/13/2018 11:56am Weight 268.00 lb Weight 121.565 kg BP Systolic 100 mmHg BP Diastolic 68 mmHg Heart Rate 84 /min Body Temperature 98.1 F Respiratory Rate 16 /min 09/12/2018 11:09am Weight 261.00 lb Weight 118.390 kg BP Systolic 128 mmHg BP Diastolic 76 mmHg Heart Rate 78 /min Body Temperature 97.8 F Respiratory Rate 16 /min O2 % BldC Oximetry 97 % 09/01/2018 11:42am Weight 268.00 lb Weight 121.565 kg BP Systolic 130 mmHg BP Diastolic 80 mmHg Heart Rate 68 /min Body Temperature 99.0 F Respiratory Rate 16 /min 08/06/2018 11:09am Weight 255.00 lb Weight 115.668 kg BP Systolic 118 mmHg BP Diastolic 70 mmHg Heart Rate 88 /min Body Temperature 97.8 F Respiratory Rate 16 /min Height 78 inches 6'6" BMI (Body Mass Index) 29.5 kg/m2 O2 % BldC Oximetry 96 % 03/31/2018 4:08pm Weight 256.00 lb Weight 116.122 kg BP Systolic 110 mmHg BP Diastolic 70 mmHg Heart Rate 74 /min Body Temperature 97.1 F Respiratory Rate 16 /min O2 % BldC Oximetry 97 % 11/26/2017 11:21am Weight 263.00 lb Weight 119.297 kg BP Systolic 110 mmHg BP Diastolic 78 mmHg Heart Rate 82 /min Body Temperature 97.0 F Respiratory Rate 16 /min 09/24/2017 2:59pm Weight 264.00 lb Weight 119.750 kg BP Systolic 100 mmHg BP Diastolic 68 mmHg Heart Rate 75 /min Body Temperature 98.0 F Height 65.5 inches 5'5.50" BMI (Body Mass Index) 43.3 kg/m2 O2 % BldC Oximetry 98 % 03/26/2017 11:50am Weight 259.00 lb Weight 117.482 kg BP Systolic 100 mmHg BP Diastolic 56 mmHg Heart Rate 76 /min Body Temperature 97.9 F Respiratory Rate 16 /min O2 % BldC Oximetry 97 % 12/23/2016 12:36pm Weight 259.00 lb Weight 117.482 kg BP Systolic 120 mmHg BP Diastolic 70 mmHg Heart Rate 87 /min Body Temperature 97.9 F Respiratory Rate 16 /min 07/22/2016 11:15am Weight 254.00 lb Weight 115.214 kg BP Systolic 98 mmHg BP Diastolic 68 mmHg Heart Rate 72 /min Body Temperature 98.3 F Respiratory Rate 16 /min 02/27/2016 4:33pm Weight 251.00 lb Weight 113.854 kg BP Systolic 102 mmHg BP Diastolic 60 mmHg Heart Rate 91 /min O2 % BldC Oximetry 97 % 01/03/2016 9:34am Weight 254.00 lb Weight 115.214 kg BP Systolic 115 mmHg BP Diastolic 70 mmHg Heart Rate 88 /min Height 76 inches 6'4" BMI (Body Mass Index) 30.9 kg/m2 08/29/2015 3:42pm Weight 245.00 lb Weight 111.132 kg BP Systolic 120 mmHg 96/64 BP Diastolic 80 mmHg 96/64 Heart Rate 80 /min 04/03/2015 11:15am Weight 245.00 lb Weight 111.132 kg BP Systolic 124 mmHg BP Diastolic 72 mmHg Heart Rate 68 /min 12/28/2014 10:04am Weight 245.00 lb Weight 111.132 kg BP Systolic 120 mmHg BP Diastolic 68 mmHg Heart Rate 68 /min Height 78 inches 6'6" BMI (Body Mass Index) 28.3 kg/m2 10/03/2014 11:03am Weight 246.00 lb Weight 111.586 kg BP Systolic 130 mmHg BP Diastolic 80 mmHg Heart Rate 96 /min 09/12/2014 4:20pm Weight 245.00 lb Weight 111.132 kg BP Systolic 112 mmHg BP Diastolic 72 mmHg Heart Rate 96 /min Body Temperature 97.2 F 07/07/2014 12:08pm Weight 248.00 lb Weight 112.493 kg BP Systolic 124 mmHg BP Diastolic 74 mmHg Heart Rate 68 /min Body Temperature 98.0 F Height 77 inches 6'5" BMI (Body Mass Index) 29.4 kg/m2 12/13/2013 4:21pm Weight 263.00 lb Weight 119.297 kg BP Systolic 120 mmHg BP Diastolic 80 mmHg Heart Rate 100 /min Body Temperature 98.7 F 11/25/2013 11:39am Weight 261.00 lb Weight 118.390 kg BP Systolic 100 mmHg BP Diastolic 66 mmHg Heart Rate 104 /min Body Temperature 99.3 F O2 % BldC Oximetry 97 % 08/20/2013 9:27am Weight 260.00 lb Weight 117.936 kg BP Systolic 122 mmHg BP Diastolic 68 mmHg Heart Rate 76 /min Body Temperature 97.9 F 03/10/2013 2:34pm Weight 248.00 lb Weight 112.493 kg BP Systolic 106 mmHg BP Diastolic 76 mmHg Heart Rate 88 /min Height 76.75 inches 6'4.75" BMI (Body Mass Index) 29.6 kg/m2 02/02/2013 4:44pm Weight 247.00 lb Weight 112.039 kg BP Systolic 102 mmHg BP Diastolic 60 mmHg Heart Rate 88 /min Body Temperature 98.8 F Height 77 inches 6'5" BMI (Body Mass Index) 29.3 kg/m2 O2 % BldC Oximetry 96 % 10/01/2010 11:47am Weight 255.00 lb Weight 115.668 kg BP Systolic 112 mmHg BP Diastolic 74 mmHg Heart Rate 80 /min Body Temperature 98.5 F O2 % BldC Oximetry 98 % AT Room Air 12/16/2008 12:51pm Weight 276.00 lb Weight 125.194 kg BP Systolic 118 mmHg BP Diastolic 74 mmHg Heart Rate 78 /min Body Temperature 98.4 F 11/03/2008 10:10am Weight 274.00 lb Weight 124.286 kg BP Systolic 116 mmHg BP Diastolic 64 mmHg Body Temperature 97.4 F 09/06/2008 8:49am Weight 264.00 lb Weight 119.750 kg BP Systolic 112 mmHg BP Diastolic 68 mmHg Heart Rate 76 /min Height 78 inches 6'6" BMI (Body Mass Index) 30.5 kg/m2 05/10/2005 4:16pm Weight 259.00 lb Weight 117.482 kg BP Systolic 130 mmHg BP Diastolic 72 mmHg 02/19/2005 4:50pm Weight 267.00 lb Weight 121.111 kg BP Systolic 120 mmHg BP Diastolic 80 mmHg 01/15/2005 4:35pm Weight 270.00 lb Weight 122.472 kg BP Systolic 120 mmHg BP Diastolic 70 mmHg Respiratory Rate 18 /min 12/25/2004 3:44pm Weight 279.00 lb Weight 126.554 kg BP Systolic 102 mmHg BP Diastolic 76 mmHg Heart Rate 92 /min 11/27/2004 3:29pm Weight 277.00 lb Weight 125.647 kg BP Systolic 110 mmHg BP Diastolic 70 mmHg 12/12/2003 10:38am Weight 272.00 lb Weight 123.379 kg BP Systolic 100 mmHg BP Diastolic 68 mmHg Body Temperature 97.9 F 11/05/2002 8:45am Weight 271.00 lb Weight 122.900 kg BP Systolic 120 mmHg BP Diastolic 80 mmHg Heart Rate 68 /min Respiratory Rate 18 /min Height 78 inches BMI (Body Mass Index) 31.3 kg/m2 Results Test Date Facility Test Result H/L Range Note Laboratory 11/12/19 [facility] Surgical SEE RESULT 1, 2 test finding [phone] Interface BELOW Order Laboratory 11/12/19 [facility] Clotest SEE RESULT 3, 4 test finding 19 [phone] BELOW Laboratory 08/06/20 [facility] PSA Screening 3.671 ng /mL 0-4.0 5 test finding 18 [phone] HIV 1/2 AB 03/31/20 [facility] HIV 1 2 Nonreactive Nonreactive 6, 7 Evaluation 18 [phone] Antibody Laboratory 03/31/20 [facility] Vitamin D 37.1 ng/mL N 20-50 8 test finding 18 [phone] Total 25(Oh) Vitamin B12 1405 pg/mL High 180-914 9 Laboratory 2018 [facility] Surgical SEE RESULT 10, test finding [phone] Pathology BELOW 11 Laboratory 03/11/2018 [facility] PSA 5.468 ng/mL High 0-4.0 12 test finding [phone] Screening Laboratory 11/26/2017 [facility] Urine SEE RESULT 13, test finding [phone] Culture BELOW 14 HIV 1/2 AB 11/26/2017 [facility] HIV 1 2 Nonreactive Nonreactive 15, Evaluation [phone] Antibody 16 Laboratory 11/26/2017 [facility] Syphillis Nonreactive Nonreactive 17 test finding [phone] Igg W/Reflex RPR Vitamin B12 320 pg/mL N 180-914 18 Vitamin D Total 25(Oh) 29.3 ng/mL N 20-50 19 PSA Screening 5.215 ng/mL High 0-4.000 20 GC/Chlamydia 11/26/2017 [facility] Chlamydia Negative Negative 21 Amplified Rna [phone] trachomatis Rna Neisseria gonorrhoeae (GC) Rna Negative Negative Urine DIP 11/26/2017 In House Lab Leukocytes + Neg [phone] Urine Nitrites neg Neg Urobilinogen norm Norm Total Protein, Urine trace Neg Urine pH 6 5-6 Urine Blood neg Neg Specific [place] 1.010 1.01-1.02 Urine Ketones neg Neg Urine Bilirubin neg Neg Urine Glucose norm Norm CBC Auto Diff 09/24/2017 [facility] White Blood 4.7 10^3/uL N 3.5-10.8 22 [phone] Count Red Blood Count 4.76 10^6/uL N 4.0-5.4 Hemoglobin 15.1 g/dL N 14.0-18.0 Hematocrit 44 % N 42-52 Mean Corpuscular Volume 93 fL N 80-94 Mean Corpuscular Hemoglobin 32 pg High 27-31 Mean Corpuscular HGB Conc 34 g/dL N 31-36 Red Cell Distribution Width 14 % N 10.5-15 Platelet Count 170 10^3/uL N 150-450 Mean Platelet Volume 10 um3 N 7.4-10.4 Abs Neutrophils 2.3 10^3/uL N 1.5-7.7 Abs Lymphocytes 1.6 10^3/uL N 1.0-4.8 Abs Monocytes 0.6 10^3/uL N 0-0.8 Abs Eosinophils 0.1 10^3/uL N 0-0.6 Abs Basophils 0 10^3/uL N 0-0.2 Abs Nucleated RBC 0 10^3/uL Granulocyte % 49.7 % N 38-83 Lymphocyte % 33.5 % N 25-47 Monocyte % 13.7 % High 1-9 Eosinophil % 2.2 % N 0-6 Basophil % 0.9 % N 0-2 Nucleated Red Blood Cells % 0.1 Laboratory test 09/24/2017 [facility] PSA Screening 3.272 ng/mL N 0-4.000 23 finding [phone] Comp Metabolic 09/24/2017 [facility] Sodium 137 mmol/ L N 133-145 Panel [phone] Potassium 4.4 mmol/L N 3.5-5.0 Chloride 102 mmol/L N 101-111 Co2 Carbon Dioxide 28 mmol/L N 22-32 Anion Gap 7 mmol/L N 2-11 Glucose 98 mg/dL N 70-100 Blood Urea Nitrogen 16 mg/dL N 6-24 Creatinine 0.91 mg/dL N 0.67-1.17 BUN/Creatinine Ratio 17.6 N 8-20 Calcium 9.7 mg/dL N 8.6-10.3 Total Protein 7.1 g/dL N 6.4-8.9 Albumin 4.4 g/dL N 3.2-5.2 Globulin 2.7 g/dL N 2-4 Albumin/Globulin Ratio 1.6 N 1-3 Total Bilirubin 0.60 mg/dL N 0.2-1.0 Alkaline Phosphatase 52 U/L N 34-104 Alt 33 U/L N 7-52 Ast 35 U/L N 13-39 Egfr Non- 85.0 >60 Egfr 109.3 >60 24 Laboratory test 09/24/2017 [facility] Vitamin D 26.4 ng/mL N 20-50 25 finding [phone] Total 25(Oh) Vitamin B12 213 pg/mL N 180-914 26 Comp Metabolic 12/23/2016 [facility] Sodium 136 mmol/ L N 133-145 27 Panel [phone] Potassium 4.1 mmol/L N 3.5-5.0 Chloride 100 mmol/L Low 101-111 Co2 Carbon Dioxide 25 mmol/L N 22-32 Anion Gap 11 mmol/L N 2-11 Glucose 86 mg/dL N 70-100 Blood Urea Nitrogen 13 mg/dL N 6-24 Creatinine 0.77 mg/dL N 0.67-1.17 BUN/Creatinine Ratio 16.9 N 8-20 Calcium 9.5 mg/dL N 8.6-10.3 Total Protein 7.3 g/dL N 6.4-8.9 Albumin 4.5 g/dL N 3.2-5.2 Globulin 2.8 g/dL N 2-4 Albumin/Globulin Ratio 1.6 N 1-3 Total Bilirubin 0.90 mg/dL N 0.2-1.0 Alkaline Phosphatase 52 U/L N 34-104 Alt 25 U/L N 7-52 Ast 30 U/L N 13-39 Egfr Non- 103.4 N >60 Egfr 133.0 N >60 28 CBC Auto Diff 12/23/2016 [facility] White Blood 4.4 10^3/uL N 3.5-10.8 [phone] Count Red Blood Count 5.22 10^6/uL N 4.0-5.4 Hemoglobin 15.8 g/dL N 14.0-18.0 Hematocrit 47 % N 42-52 Mean Corpuscular Volume 91 fL N 80-94 Mean Corpuscular Hemoglobin 30 pg N 27-31 Mean Corpuscular HGB Conc 33 g/dL N 31-36 Red Cell Distribution Width 15 % N 10.5-15 Platelet Count 160 10^3/uL N 150-450 Mean Platelet Volume 10 um3 N 7.4-10.4 Abs Neutrophils 2.4 10^3/uL N 1.5-7.7 Abs Lymphocytes 1.4 10^3/uL N 1.0-4.8 Abs Monocytes 0.5 10^3/uL N 0-0.8 Abs Eosinophils 0.1 10^3/uL N 0-0.6 Abs Basophils 0 10^3/uL N 0-0.2 Abs Nucleated RBC 0.01 10^3/uL N Granulocyte % 53.9 % N 38-83 Lymphocyte % 31.5 % N 25-47 Monocyte % 11.4 % High 1-9 Eosinophil % 2.5 % N 0-6 Basophil % 0.7 % N 0-2 Nucleated Red Blood Cells % 0.1 N Laboratory test 12/23/2016 [facility] PSA Screening 1.792 N 0-4.000 29 finding [phone] CBC No Diff 02/26/2016 [facility] White Blood 3.5 N 3.5-10.8 [phone] Count 10^3/uL Red Blood Count 4.76 10^6/uL N 4.0-5.4 Hemoglobin 15.0 g/dL N 14.0-18.0 Hematocrit 44 % N 42-52 Mean Corpuscular Volume 91 fL N 80-94 Mean Corpuscular Hemoglobin 32 pg High 27-31 Mean Corpuscular HGB Conc 35 g/dL N 31-36 Red Cell Distribution Width 13 % N 10.5-15 Platelet Count 195 10^3/uL N 150-450 Mean Platelet Volume 9 um3 N 7.4-10.4 Inr/Protime 02/26/2016 [facility] Inr 0.97 N 0.89- 1.11 [phone] Laboratory test 02/26/2016 [facility] Partial 30.1 seconds N 26.0-36.3 finding [phone] Thrombo Time PTT Urinalysis 02/26/2016 [facility] Urine Color Yellow N Profile [phone] Urine Appearance Cloudy N Urine Specific [place] 1.017 N 1.010-1.030 Urine pH 5.0 N 5-9 Urine Urobilinogen Negative N Negative Urine Ketones Negative N Negative Urine Protein Negative N Negative Urine Leukocytes Negative N Negative Urine Blood Negative N Negative Urine Nitrite Negative N Negative Urine Bilirubin Negative N Negative Urine Glucose Negative N Negative Laboratory test 02/26/2016 [facility] Urine Culture SEE RESULT 30 finding [phone] BELOW Type & Screen 02/26/2016 [facility] Patient Blood AB Negative N [phone] Type Antibody Screen NEGATIVE N Comp Metabolic Panel 02/26/2016 [facility] Sodium 138 mmol/L N 133-145 [phone] Potassium 4.0 mmol/L N 3.5-5.0 Chloride 104 [...] 75.9 N >60 Egfr 97.6 N >60 31 Laboratory test 01/03/2016 [facility] Vitamin B12 512 pg/mL N 180-914 32 finding [phone] Vitamin D Total 25(Oh) 26.3 ng/mL Low 30-50 CBC Auto Diff 01/03/2016 [facility] White Blood 3.6 10^3/uL N 3.5-10.8 [phone] Count Red Blood Count 4.86 10^6/uL N 4.0-5.4 Hemoglobin 15.3 g/dL N 14.0-18.0 Hematocrit 46 % N 42-52 Mean Corpuscular Volume 94 fL N 80-94 Mean Corpuscular Hemoglobin 32 pg High 27-31 Mean Corpuscular HGB Conc 34 g/dL N 31-36 Red Cell Distribution Width 13 % N 10.5-15 Platelet Count 171 10^3/uL N 150-450 Mean Platelet Volume 9 um3 N 7.4-10.4 Abs Neutrophils 1.6 10^3/uL N 1.5-7.7 Abs Lymphocytes 1.5 10^3/uL N 1.0-4.8 Abs Monocytes 0.4 10^3/uL N 0-0.8 Abs Eosinophils 0.1 10^3/uL N 0-0.6 Abs Basophils 0 10^3/uL N 0-0.2 Abs Nucleated RBC 0 10^3/uL N Granulocyte % 43.5 % N 38-83 Lymphocyte % 40.7 % N 25-47 Monocyte % 11.7 % High 1-9 Eosinophil % 3.0 % N 0-6 Basophil % 1.1 % N 0-2 Nucleated Red Blood Cells % 0.1 N Comp Metabolic Panel 01/03/2016 [facility] Sodium 135 mmol/L N 133-145 [phone] Potassium 4.0 mmol/L N 3.5-5.0 Chloride 101 mmol/L N 101-111 Co2 Carbon Dioxide 26 mmol/L N 22-32 Anion Gap 8 mmol/L N 2-11 Glucose 87 mg/dL N 70-100 Blood Urea Nitrogen 15 mg/dL N 6-24 Creatinine 0.91 mg/dL N 0.67-1.17 BUN/Creatinine Ratio 16.5 N 8-20 Calcium 9.6 mg/dL N 8.6-10.3 Total Protein 7.1 g/dL N 6.4-8.9 Albumin 4.7 g/dL N 3.2-5.2 Globulin 2.4 g/dL N 2-4 Albumin/Globulin Ratio 2.0 N 1-3 Total Bilirubin 0.50 mg/dL N 0.2-1.0 Alkaline Phosphatase 40 U/L N 34-104 Alt 31 U/L N 7-52 Ast 28 U/L N 13-39 Egfr Non- 85.6 N >60 Egfr 110.1 N >60 33 GC/Chlamydia 01/03/2016 [facility] Chlamydia Negative N Negative Amplified Rna [phone] trachomatis Rna Neisseria gonorrhoeae (GC) Rna Negative N Negative Laboratory 01/03/2016 [facility] Syphilis IgG Nonreactive N Nonreactive 34 test finding [phone] w/reflex RPR HIV 1/2 AB 01/03/2016 [facility] HIV 1 2 Nonreactive N Nonreactive 35 Evaluation [phone] Antibody Lipid Profile 01/03/2016 [facility] Triglycerides 129 mg/dL N 36 (Trig/Chol/HD [phone] L) Cholesterol 178 mg/dL N 37 HDL Cholesterol 62.5 mg/dL N 38 LDL Cholesterol 90 mg/dL N 39 Laboratory 01/03/2016 [facility] Hepatitis C Nonreactive N Nonreactive 40 test finding [phone] Antibody Laboratory 08/29/2015 [facility] Vitamin D 21.4 ng/ mL Low 30-50 test finding [phone] Total 25(Oh) PSA Diagnostic 2.705 ng/mL N 0-4.000 41 Metanephrines 08/29/2015 [facility] Plasma Free 0.48 N <0.90 Plasma [phone] Normetanephrine nmol/L Plasma Free Metanephrine <0.20 nmol/L N <0.50 42 Basic Metabolic 08/29/2015 [facility] Sodium 138 mmol /L N 133-145 Panel [phone] Potassium 4.2 mmol/L N 3.5-5.0 Chloride 104 mmol/L N 101-111 Co2 Carbon Dioxide 27 mmol/L N 22-32 Anion Gap 7 mmol/L N 2-11 Glucose 90 mg/dL N 70-100 Blood Urea Nitrogen 18 mg/dL N 6-24 Creatinine 0.88 mg/dL N 0.67-1.17 BUN/Creatinine Ratio 20.5 High 8-20 Calcium 9.7 mg/dL N 8.6-10.3 Egfr Non- 88.9 N >60 Egfr 114.4 N >60 43 Laboratory test 08/26/2015 [facility] Free Cortisol 0.03 Abnormal 44 finding [phone] Serum g/dL Urine 08/26/2015 [facility] Urine 84 N 45 Metanephrines [phone] Metanephrine mcg/24h 24HR Urine Normetanephrine 452 mcg/24h N 46 Urine Total Metanephrines 536 mcg/24h N 47 Urine Collection Duration 24 h N Urine Volume 2150 mL N 48 Catecholamine 24HR 08/26/2015 [facility] Urine Collection 24 h N Urine Fract [phone] Duration Urine Total Volume 2150 mL N Urine Norepinephrine 73 mcg/24h N 15-80 Urine Epinephrine 3.7 mcg/24h N <21 Urine Dopamine 368 mcg/24h N 65-400 49 Herpes Simplex 01/19/2015 [facility] Herpes Simplex Positive N Negative Type 1&2 Igg [phone] Virus I IgG AB Herpes Simplex Virus II IgG AB Negative N Negative 50 Syphilis 01/19/2015 [facility] Syphilis IgG Nonreactive N Nonreactive 51 Screen [phone] RPR TNP N Nonreactive RPR Titer TNP N Pediatric/Maternal NO N HIV 1/2 AB 01/19/2015 [facility] HIV 1 2 Nonreactive N Nonreactive 52 Evaluation [phone] Antibody Laboratory 01/19/2015 [facility] Magnesium 2.1 mg/dL N 1.9-2.7 test finding [phone] Laboratory 01/19/2015 [facility] PSA 2.406 ng/mL N 0-4.000 53 test finding [phone] Screening Ferritin 66.3 ng/mL N 24-336 Comp Metabolic Panel 01/19/2015 [facility] Sodium 136 mmol/L N 133-145 [phone] Potassium 3.7 mmol/L N 3.5-5.0 Chloride 104 mmol/L N 101-111 Co2 Carbon Dioxide 25 mmol/L N 22-32 Anion Gap 7 mmol/L N 2-11 Glucose 88 mg/dL N 70-100 Blood Urea Nitrogen 18 mg/dL N 6-24 Creatinine 0.94 mg/dL N 0.67-1.17 BUN/Creatinine Ratio 19.1 N 8-20 Calcium 9.5 mg/dL N 8.6-10.3 Total Protein 7.0 g/dL N 6.4-8.9 Albumin 4.7 g/dL N 3.2-5.2 Globulin 2.3 g/dL N 2-4 Albumin/Globulin Ratio 2.0 N 1-3 Total Bilirubin 0.40 mg/dL N 0.2-1.0 Alkaline Phosphatase 42 U/L N 34-104 Alt 17 U/L N 7-52 Ast 22 U/L N 13-39 Egfr Non- 82.7 N >60 Egfr 106.4 N >60 54 Laboratory test 01/19/2015 [facility] Vitamin B12 321 pg/mL N [phone] 55 finding [phone] Vitamin D, 25 01/19/2015 [facility] 25-Hydroxy <4.0 ng/mL N Hydroxy [phone] Vitamin D2 25-Hydroxy Vitamin D3 12 ng/mL N 25-Hydroxy Vitamin D Total 12 ng/mL Abnormal 56 GC/Chlamydia 12/28/2014 [facility] Chlamydia Negative N Negative Amplified Rna [phone] trachomatis Rna Neisseria gonorrhoeae (GC) Rna Negative N Negative 57 Urine DIP 12/28/2014 In House Lab Specific [place] 1.010 1.01-1.02 (607)- - Urine pH 7 High 5-6 Leukocytes neg Neg Urine Nitrites neg Neg Total Protein, Urine neg Neg Urine Glucose norm Norm Urine Ketones neg Neg Urobilinogen norm Norm Urine Bilirubin neg Neg Urine Blood neg Neg Flu Test A, B, Or A & B,Binaxn 11/25/2013 In House Lab Influenza A Antigen neg (607)- - Influenza B Antigen neg Surgical 11/04/2013 [facility] S RUN DATE: 58 Pathology [phone] 11/05/ <SEE NOTE> CBC Auto Diff 08/20/2013 [facility] White Blood 3.4 10^3/uL Low 4.8-10 [phone] Count .8 Red Blood Count 5.18 10^6/uL 4.0-5.4 Hemoglobin 16.6 g/dL 14.0-18.0 Hematocrit 49 % 42-52 Mean Corpuscular Volume 94 fL 80-94 Mean Corpuscular Hemoglobin 32 pg High 27-31 Mean Corpuscular HGB Conc 34 g/dL 31-36 Red Cell Distribution Width 13 % 10.5-15 Platelet Count 155 10^3/uL 150-450 Mean Platelet Volume 9 um3 7.4-10.4 Comp Metabolic Panel 08/20/2013 [facility] Sodium 136 mmol/L 133-145 [phone] Potassium 4.2 mmol/L 3.5-5.0 Chloride 102 mmol/L 101-111 Co2 Carbon Dioxide 26.0 mmol/L 22-32 Anion Gap 8.0 mmol/L 2-11 Glucose 99 mg/dL 70-100 Blood Urea Nitrogen 10 mg/dL 6-24 Creatinine 0.80 mg/dL 0.50-1.40 BUN/Creatinine Ratio 12.5 8-20 Calcium 9.5 mg/dL 8.1-9.9 Total Protein 6.6 g/dL 6.2-8.1 Albumin 4.4 g/dL 3.6-5.4 Globulin 2.2 g/dL 2-4 Albumin/Globulin Ratio 2.0 1-3 Total Bilirubin 0.8 mg/dL 0.4-1.5 Alkaline Phosphatase 39 U/L 30-110 Alt 31 U/L 14-54 Ast 30 U/L 12-42 Egfr Non- 100.0 >60 Egfr 128.6 >60 59 Lipid Profile 08/20/2013 [facility] Triglycerides 111 mg/dL 40-200 (Trig/Chol/HDL) [phone] Cholesterol 214 mg/dL High Less than 200 HDL Cholesterol 61 mg/dL High 40-60 60 Cholesterol/HDL Ratio 3.5 Average 1-4.44 LDL Cholesterol 130.8 High Less Than 100 61 Laboratory test 08/20/2013 [facility] Hemoglobin A1c 5.8 % Less than 62 finding [phone] 6.0 TSH (Thyroid Stimulating Horm) 2.75 miu/mL 0.34-5.60 63 Vitamin B12 249 pg/mL 180-914 64 Testosterone 459.5 ng/dL 175-781 65 Free T4 0.83 ng/mL 0.61-1.24 66 Vitamin D, 25 08/20/2013 [facility] 25-Hydroxy Vitamin <4.0 ng/mL Hydroxy [phone] D2 25-Hydroxy Vitamin D3 19 ng/mL 25-Hydroxy Vitamin D Total 19 ng/mL Abnormal 67 Laboratory 08/20/2013 [facility] Ferritin 111 ng/mL 24-336 68 test finding [phone] HIV 1/2 AB 08/20/2013 [facility] HIV 1 2 Nonreactive Nonreactive 69 Evaluation [phone] Antibody Urine DIP 03/10/2013 In House Lab Leukocytes neg Neg (607)- - Urine Nitrites neg Neg Urine pH 6 5-6 Total Protein, Urine trace Neg Urine Glucose norm Norm Urine Ketones neg Neg Urobilinogen norm Norm Urine Bilirubin neg Neg Urine Blood trace Neg Specific [place] 1.025 High 1.01-1.02 Urine DIP 02/02/2013 In House Lab Leukocytes neg Neg (607)- - Urine Nitrites neg Neg Urine pH 5 5-6 Total Protein, Urine neg Neg Urine Glucose norm Norm Urine Ketones neg Neg Urobilinogen norm Norm Urine Bilirubin neg Neg Urine Blood neg Neg Specific [place] 1.025 High 1.01-1.02 Culture&Sensitivity 07/11/2010 [facility] Culture POSSIBLE 70 Eye,Ear,Wounds,Misc [phone] Sensitivity SKIN CO <SEE NOTE> Lyme Western Blot 11/03/2008 [facility] Lyme Disease Negative Negative 71 Specialty [phone] Igg Western Blot Lyme Disease Igm Western Blot Negative Negative 72 Lyme Disease Interpretation . () 73 Surgical 09/19/2008 [facility] Surgical --- 74 Pathology [phone] Pathology <SEE NOTE> Urine DIP 09/06/2008 In House Lab Leukocytes NEG Neg (607)- - Urine Nitrites NEG Neg Urine pH 5 5-6 Total Protein, Urine NGE Neg Urine Glucose NOR Norm Urine Ketones NEG Neg Urobilinogen NORM Norm Urine Bilirubin NEG Neg Urine Blood NEG Neg Specific [place] NA Low 1.01-1.02 Laboratory test 09/06/2008 [facility] Testosterone 630.7 [phone] finding [phone] Total ng/dL PSA Screening 0.75 NG/ML 0-4 75 Comp Metabolic Panel 09/06/2008 [facility] Sodium 138 mmol/L 135-145 [phone] Potassium 4.0 mmol/L 3.5-5.0 Chloride 104 mmol/L 101-111 Co2 (Carbon Dioxide) 29.0 mmol/L 22-32 Anion Gap 5.0 mmol/L 2-11 76 Glucose 88 mg/dL 70-100 77 BUN 15 mg/dL 6-24 Creatinine 0.80 mg/dL 0.50-1.40 One Over Creatinine 1.20 BUN/Creatinine Ratio 18.8 8-20 Calcium 9.5 mg/dL 8.1-9.9 78 Total Protein 7.2 GM/DL 6.2-8.1 Albumin 4.5 GM/DL 3.6-5.4 Globulin 2.7 GM/DL 2-4 Albumin/Globulin Ratio 1.7 1-3 Bilirubin Total 1.1 mg/dL 0.4-1.5 Alkaline Phosphatase 43 U/L 39-117 Alt (SGPT) 23 U/L 17-63 Ast (Sgot) 29 U/L 12-42 CBC With 09/06/2008 [facility] White Blood 3.7 CUMM Low 4.8-10.8 Electronic Diff [phone] Count Red Cell Count 4.83 CUMM 4.6-6.2 Hemoglobin 15.2 g/dL 14.0-18.0 Hematocrit 43 % 42-52 Mean Corpuscular Volume 90 um3 80-94 Mean Corpuscular Hemoglob 31 pg 27-31 Mean Corpuscular HGB Cone 35 g/dL 32-36 Redcell Distribution WDTH 13 % 10.5-15 Platelet Count 160 CUMM 150-450 Mean Platelet Volume 8.3 um3 7.4-10.4 Gran % 48.8 % 38-83 Lymph % 35.2 % 25-47 Mononuclear % 11.1 % High 1-9 Eosinophil % 4.3 % 0-6 Basophil % 0.6 % 0-2 Abs Lymphs 1.3 1.0-4.8 Abs Mononuclear 0.4 0-0.8 Absolute Neutrophil Count 1.8 1.5-7.7 Abs Eosinophils 0.2 0-0.6 Abs Basophils 0 0-0.2 Lipid Profile 09/06/2008 [facility] Triglyceride 89 mg/dL 40-200 (Trig/Chol/HDL) [phone] Cholesterol 207 mg/dL High Less Than 200 79 High Density Lipoprotein 64 mg/dL High 40-60 80 Cholesterol/HDL Ratio 3.23 AVERAGE 1-4.97 Low Density Lipoprotein 125 mg/dL High Less Than 100 81 Laboratory test 12/11/2004 [facility] Hemoglobin A1c 5.6 finding [phone] Lipid Panel 12/11/2004 [facility]-2 Cholesterol, Total 230 High (607)- - Cholesterol/HDL Ratio 3.38 HDL 68 High Low Density Lipoprotein 131 High Triglycerides 154 Laboratory test finding 12/11/2004 [facility]-2 TSH (Thyroid Stimulating 4.19 (607)- - Horm) Urine DIP 11/05/2002 In House Lab Leukocytes neg Neg (607)- - Urine Nitrites neg Neg Urine pH 5 5-6 Total Protein, Urine neg Neg Urine Glucose norm Norm Urine Ketones neg Neg Urobolinogen norm Norm Urine Bilirubin neg Neg Urine Blood neg Neg CBC With 11/05/2002 [facility] Platelet Count 195 CUMM 150-450 Electronic Diff [phone] White Blood Count 5.3 CUMM 4.8-10.8 Abs Basophils 0 0-0.2 Abs Eosinophils 0.1 0-0.6 Abs Grans 3.6 1.5-7.7 Abs Lymphs 1.1 1.0-4.8 Abs Mononuclear 0.5 0-0.8 Basophil % 0.3 % 0-2 Hematocrit 47 % 42-52 Hemoglobin 16.2 g/dL 14.0-18.0 Eosinophil % 1.5 % 0-6 Gran % 67.4 % 38-83 Lymph % 20.8 % 20-45 Mean Corpuscular HGB Cone 34 g/dL 32-36 Mean Corpuscular Hemoglob 31 pg 27-31 Mean Corpuscular Volume 90 um3 80-94 Mean Platelet Volume 9.0 um3 7.4-10.4 Mononuclear % 10.0 % High 1-9 Red Cell Count 5.22 CUMM 4.6-6.2 Redcell Distribution WDTH 13 % 10.5-15 Laboratory test 11/05/2002 [facility] PSA Screening 0.6 NG/ML 0-4 82 finding [phone] Lipid Profile 11/05/2002 [facility] Cholesterol/HD 3.49 AVERAGE 1-4.97 (Trig/Chol/HDL) [phone] L Ratio Cholesterol 185 mg/dL Less Than 200 83 Triglyceride 106 mg/dL 40-200 High Density Lipoprotein 53 mg/dL 40-60 Low Density Lipoprotein 111 mg/dL High Less Than 100 84 Comp Metabolic 11/05/2002 [facility] Albumin/Globulin Ratio 1.6 1-3 Panel [phone] Albumin 4.5 GM/DL 3.6-5.4 Alkaline Phosphatase 49 U/L 39-117 Alt (SGPT) 33 U/L 17-63 Ast (Sgot) 29 U/L 12-42 BUN 11 mg/dL 6-24 Calcium 10.1 mg/dL 8.7-10.2 Chloride 102 mmol/L 101-111 Co2 (Carbon Dioxide) 27.0 mmol/L 22-32 Creatinine 0.9 mg/dL 0.5-1.4 Globulin 2.8 GM/DL 2-4 Glucose 103 mg/dL 70-105 Potassium 4.3 mmol/L 3.5-5.0 Sodium 137 mmol/L 135-145 Bilirubin Total 0.5 mg/dL 0.4-1.5 Total Protein 7.3 GM/DL 6.2-8.1 BUN/Creatinine Ratio 12.2 8-20 1 [id number] 2 SEE RESULT BELOW Name: KHADIJAH CHANEY : [address]: Luke Zimmerman MD Acct: [id number] Unit: [id number] AGE: 63 Location: ENDOC Re11/12/18 SEX: M Status: DEP REF SPEC: [id number] RORO: 11/12/[address] [facility] [address]: Luke Zimmerman MD REQ: [id number] RECD: 11/12/189 STATUS: KARINE MEDINA DR: Livier Edwards MD _ ORDERED: LEVEL 4/9 COMMENTS: [id number] FINAL DIAGNOSIS 1. Esophagus, random, biopsy: -- Benign squamous mucosa with mild erosive changes. -- No evidence of eosinophilic esophagitis. -- No columnar component present for evaluation. 2. Colon, cecum, biopsy: -- Tubular adenoma. -- No high grade dysplasia or malignancy. 3. Colon, at 80 cm, biopsy: -- Benign colonic mucosa with a nodular lymphoid aggregate. 4. Colon, transverse, biopsy: -- Tubulovillous adenoma. -- No high grade dysplasia or malignancy. 5. Colon, at 70 cm, biopsy: -- Tubular adenomas. -- No high-grade dysplasia or malignancy. 6. Colon, at 55 cm, biopsy: -- Tubulovillous adenomas. -- No high grade dysplasia or malignancy. 7. Colon, at 30 cm, biopsy: -- Tubular adenoma. -- No high grade dysplasia or malignancy. 8. Colon, at 25 cm, biopsy: -- Tubular adenoma. -- No high grade dysplasia or malignancy. 9. Colon, at 20 cm, biopsy: CONTINUED ON NEXT PAGE DEPARTMENT OF PATHOLOGY, [address] [place] [address] Petr Colbert M.D. Director [facility] # [id number] RUN DATE: 11/13/18 [facility] LIVE PAGE 2 Patient: KHADIJAH CHANEY [id number] (Continued) FINAL DIAGNOSIS (Continued) -- Tubulovillous adenoma. -- No high grade dysplasia or malignancy. -- Inked resection stalk margin negative for adenomatous change. POST-OPERATIVE DIAGNOSIS EGD: esophagus - hiatal hernia, grade B erosive esophagitis; gastric - normal ; duodenum - normal; colonoscopy: cecal polyp biopsy; 80 cm (2) snare biopsy transverse ( proximal) large biopsy/ tattoo; 70 cm snare (3); 55 cm snare; 30 snare; 25 snare; 20 snare GROSS DESCRIPTION 1. The specimen is received in formalin labeled, Biopsies Random Esophagus , and consists of two translucent shrestha-white irregular soft tissue fragments measuring 0.3 by up to 0.2 x 0.1 cm and 0.7 x 0.2 x 0.1 cm which are submitted entirely in one cassette. 2. The specimen is received in formalin labeled, Biopsy Cecal Polyp, and consists of a 0.4 x 0.4 x 0.1 cm aggregate of shrestha-pink irregular soft tissue fragments which is submitted entirely in one cassette. 3. The specimen is received in formalin labeled, Biopsy Colon Polyp at 80 cm, and consists of a 0.8 x 0.2 x 0.1 cm shrestha-red irregular soft tissue fragment which is submitted entirely in one cassette. 4. The specimen is received in formalin labeled, Biopsy Transverse Colon Polyp, and consists of two shrestha-pink irregular to polypoid soft tissue fragments measuring 0.2 x 0.2 x 0.1 cm and 0.3 x 0.3 x 0.2 cm which are submitted entirely in one cassette. 5. The specimen is received in formalin labeled, Colon Polyps at 70 cm, and consists of a 0.9 x 0.5 x 0.1 cm aggregate of shrestha-pink irregular to polypoid soft tissue fragments admixed with abundant organic debris. Entirely submitted, one cassette. 6. The specimen is received in formalin labeled, Colon Polyps at 55 cm, and consists of a 1.1 x 1.0 x 0.9 cm shrestha pink focally lobulated polypoid soft tissue fragment. Received separately in the same container is a 0.9 x 0.8 x 0.3 cm aggregate of shrestha irregular to polypoid soft tissue fragments. The largest fragment is inked, trisected and the specimen is entirely submitted in cassettes A and B to include separately received tissue in cassette CONTINUED ON NEXT PAGE DEPARTMENT OF PATHOLOGY, [address] [place] [address] Petr Colbert M.D. Director [facility] # [id number] RUN DATE: 11/13/18 [facility] LIVE PAGE 3 Patient: KHADIJAH CHANEY [id number] (Continued) GROSS DESCRIPTION (Continued) B. 7. The specimen is received in formalin labeled, Colon Polyp at 30 cm, and consists of a 0.8 x 0.5 by up to 0.2 cm aggregate of shrestha irregular to polypoid soft tissue fragments which is submitted entirely in one cassette. 8. The specimen is received in formalin labeled, Colon Polyp at 25 cm, and consists of two shrestha-pink polypoid soft tissue fragments measuring 0.6 x 0.5 x 0.3 cm and 0.7 by up to 0.3 x 0.2 cm. The specimen is differentially inked, bisected and submitted entirely in one cassette. 9. The specimen is received in formalin labeled, Colon Polyp at 20 cm, and consists of a 1.1 by up to 0.9 x 0.5 cm shrestha-pink lobulated polypoid soft tissue fragment which is inked, bisected and submitted entirely in one cassette. Signed by and Reported on: Fani Maldonado MD 11/13/18 1002 END OF REPORT DEPARTMENT OF PATHOLOGY, [address] [place] [address] Petr Colbert M.D. Director [facility] # [id number] 4 SEE RESULT BELOW Name: KHADIJAH CHANEY : [address]: Luke Zimmerman MD Acct: [id number] Unit: [id number] AGE: 63 Location: ENDOC[facility] Re11/12/18 SEX: M Status: DEP REF SPEC: [id number] RORO: 11/12/[address] [facility] [address]: Luke Zimmerman MD REQ: [id number] RECD: 11/12/187 STATUS: MOISE MEDINA DR: Livier Edwards MD _ SOURCE: GAS ANTRUM SPDESC: ORDERED: Clotest COMMENTS: [id number] Procedure Result Reported Site Clotest Final 11/13/18- 802 ML Clotest Negative * ML - Main Lab . END OF REPORT DEPARTMENT OF PATHOLOGY, [address] [place] [address] Petr Colbert M.D. Director [facility] # [id number] 5 Serum levels of PSA measured using the Leena La Jara DXI Hybritech immunoassay should not be interpreted as absolute evidence of the presence or absence of disease. The PSA value should be used in conjunction with other pertinent clinical diagnostic procedures. The values obtained with different assay methods or kits cannot be used interchangeably. 6 [id number] 7 It is recognized that currently available assays for the detection of antibodies to HIV-1 and/or HIV-2 may not detect all infected individuals. HIV antibodies may be undetectable in some stages of the infection and in some clinical conditions. The performance of this assay has not been established for populations of infants or children. Assayed by Chemiluminescence Microparticle Immunoassay on the Siemens Advia Centaur CP. Values obtained with different methods or kits cannot be used interchangeably.The diagnostic specificity of the ADVIA Centaur 1/O/2 Enhanced assay in the low risk population was 99.90% (6052/6058) with a 95% confidence interval of 99.78 to 99.96%. 8 [id number] 9 Normal Range 180 to 914 Indeterminate Range 145 to 180 Deficient Range <145 10 [id number] 11 SEE RESULT BELOW Name: KHADIJAH CHANEY : [address]: Deandre Smith MD Acct: [id number] Unit: [id number] AGE: 63 Location: [facility] Re03/24/18 SEX: M Status: REG REF SPEC: [id number] RORO: [address] [facility] [address]: Deandre Smith MD REQ: [id number] RECD: 03/24/18 STATUS: KARINE MEDINA DR: Livier Edwards MD _ ORDERED: S PATH PROST BX/4 COMMENTS: [id number] FINAL DIAGNOSIS 1. Prostate, left apex, core biopsies: -- Benign prostate tissue. -- No evidence of neoplasia identified. 2. Prostate, left base, core biopsies: -- Prostate adenocarcinoma, small acinar type, with: Condon score: 3+3=6 (group grade 1). Extent of local invasion: Tumor involves a single focus on one core measures 0.2 mm in maximal span and occupies less than 1% of total core volume. Perineural invasion: Not seen. Lymphovascular invasion: Not seen. Other findings: None 3. Prostate, right apex, core biopsies: -- Prostate adenocarcinoma, small acinar type, with: Condon score: 3+3=6 (group grade 1). Extent of local invasion: Tumor involves 5 foci on 3 of 3 cores measure 4 mm in aggregate and occupy 10% of total core volume. Perineural invasion: Not seen. Lymphovascular invasion: Not seen. Other findings: None. 4. Prostate, right base, core biopsies: -- Benign prostate tissue. -- No evidence of neoplasia identified. . CONTINUED ON NEXT PAGE DEPARTMENT OF PATHOLOGY, [address] [place] [address] Petr Colbert M.D. Director [facility] # [id number] RUN DATE: 03/25/18 [facility] LIVE PAGE 2 Patient: KHADIJAH CHANEY [id number] (Continued) PRE-OPERATIVE DIAGNOSIS (Continued) PRE-OPERATIVE DIAGNOSIS Mildly enlarged prostate, right lobe firmer, PSA progression and elevation POST-OPERATIVE DIAGNOSIS PSA=5.46 GROSS DESCRIPTION 1. The specimen is received in formalin labeled, Left Prostate Lobe [place], and consists of three fragmented shrestha-pink soft tissue cores ranging from 0.7 x 0.1 cm to 1.5 x 0.1 cm which are submitted entirely in one cassette. 2. The specimen is received in formalin labeled, Left Prostate Lobe Base, and consists of three fragmented shrestha-pink soft tissue cores ranging from 0.6 x 0.1 cm to 1.6 x 0.1 cm which are submitted entirely in one cassette. 3. The specimen is received in formalin labeled, Right Prostate Lobe [place], and consists of three fragmented shrestha-pink soft tissue cores ranging from 0.2 x 0.1 cm to 1.9 x 0.1 cm which are submitted entirely in one cassette. 4. The specimen is received in formalin labeled, Right Prostate Lobe Base, and consists of three fragmented shrestha-pink soft tissue cores ranging from 0.4 x 0.1 cm to 2.0 x 0.1 cm which are submitted entirely in one cassette. Signed by and Reported on: Petr Colbert MD 1251 END OF REPORT DEPARTMENT OF PATHOLOGY, [address] [place] [address] Petr Colbert M.D. Director [facility] # [id number] 12 Serum levels of PSA measured using the Leena Ignacio DXI Hybritech immunoassay should not be interpreted as absolute evidence of the presence or absence of disease. The PSA value should be used in conjunction with other pertinent clinical diagnostic procedures. The values obtained with different assay methods or kits cannot be used interchangeably. 13 [id number] 14 SEE RESULT BELOW Name: KHADIJAH CHANEY : [address]: Livier Edwards MD Acct: [id number] Unit: [id number] AGE: 62 Location: [facility] Re11/26/17 SEX: M Status: REG REF SPEC: [id number] RORO: 11/26/171141 SUBM DR: Livier Edwards MD REQ: [id number] RECD: 11/26/17 STATUS: COMP _ SOURCE: URINE SPDESC: ORDERED: Urine Culture COMMENTS: [id number] Urine Source: Random Procedure Result Reported Site Urine Culture Final 11/28/17932 ML No Growth (<1,000 CFU/mL) * ML - MAIN LAB ([facility]) . END OF REPORT * ML=Testing performed at Main Lab DEPARTMENT OF PATHOLOGY, [address] [place] [address] Petr Colbert M.D. Director [facility] # [id number] 15 [id number] 16 It is recognized that currently available assays for the detection of antibodies to HIV-1 and/or HIV-2 may not detect all infected individuals. HIV antibodies may be undetectable in some stages of the infection and in some clinical conditions. The performance of this assay has not been established for populations of infants or children. Assayed by Chemiluminescence Microparticle Immunoassay on the Siemens Advia Centaur CP. Values obtained with different methods or kits cannot be used interchangeably.The diagnostic specificity of the ADVIA Centaur 1/O/2 Enhanced assay in the low risk population was 99.90% (6052/6058) with a 95% confidence interval of 99.78 to 99.96%. 17 Warning: A positive result is not useful for establishing a diagnosis of syphilis. In most situations, such a result may reflect a prior treated infection; a negative result can exclude a diagnosis of syphilis except for incubating or early primary disease. 18 Normal Range 180 to 914 Indeterminate Range 145 to 180 Deficient Range <145 19 [id number] 20 Serum levels of PSA measured using the Leena Laiyaoyao DXI Hybritech immunoassay should not be interpreted as absolute evidence of the presence or absence of disease. The PSA value should be used in conjunction with other pertinent clinical diagnostic procedures. The values obtained with different assay methods or kits cannot be used interchangeably. 21 [id number] 23 Serum levels of PSA measured using the Leena Ignacio DXI Hybritech immunoassay should not be interpreted as absolute evidence of the presence or absence of disease. The PSA value should be used in conjunction with other pertinent clinical diagnostic procedures. The values obtained with different assay methods or kits cannot be used interchangeably. 24 Because ethnic data is not always readily [...] 15-29 5 Kidney failure <15 (or dialysis) 25 [id number] 26 Normal Range 180 to 914 Indeterminate Range 145 to 180 Deficient Range <145 27 [id number] 28 Because ethnic data is not always readily [...] 15-29 5 Kidney failure <15 (or dialysis) 29 Serum levels of PSA measured using the Leena Laiyaoyao DXI Hybritech immunoassay should not be interpreted as absolute evidence of the presence or absence of disease. The PSA value should be used in conjunction with other pertinent clinical diagnostic procedures. The values obtained with different assay methods or kits cannot be used interchangeably. 30 SEE RESULT BELOW Name: KHADIJAH CHANEY : [address]: Betsy Orlando MD Acct: [id number] Unit: [id number] AGE: 60 Location: [facility] Re02/26/16 SEX: M Status: REG REF SPEC: [id number] RORO: 02/26/[address]: Betsy Orlando MD REQ: [id number] RECD: 02/26/16 STATUS: MOISE MEDINA DR: Livier Edwards MD _ SOURCE: URINE SPDES: ORDERED: Urine Culture Procedure Result Reported Site Urine Culture Final 02/27/16- 1634 ML No Growth (<1,000 CFU/mL) * ML - MAIN LAB ([facility]) . END OF REPORT * ML=Testing performed at Main Lab DEPARTMENT OF PATHOLOGY, [address] [place] [address] Petr Colbert M.D. Director [facility] # [id number] 31 Because ethnic data is not always readily [...] 15-29 5 Kidney failure <15 (or dialysis) 32 Normal Range 180 to 914 Indeterminate Range 145 to 180 Deficient Range <145 33 Because ethnic data is not always readily [...] 15-29 5 Kidney failure <15 (or dialysis) 34 Warning: A positive result is not useful for establishing a diagnosis of syphilis. In most situations, such a result may reflect a prior treated infection; a negative result can exclude a diagnosis of syphilis except for incubating or early primary disease. 35 It is recognized that currently available assays for the detection of antibodies to HIV-1 and/or HIV-2 may not detect all infected individuals. HIV antibodies may be undetectable in some stages of the infection and in some clinical conditions. The performance of this assay has not been established for populations of infants or children. Assayed by Chemiluminescence Microparticle Immunoassay on the Siemens Advia Centaur CP. Values obtained with different methods or kits cannot be used interchangeably.The diagnostic specificity of the ADVIA Centaur 1/O/2 Enhanced assay in the low risk population was 99.90% (6052/6058) with a 95% confidence interval of 99.78 to 99.96%. 36 Desirable <150 Borderline high 150-199 High 200-499 Very High >500 37 Desirable <200 Borderline high 200-239 High >239 38 Low <40 Desirable: 40-60 High: >60 39 Desirable: <100 mg/dL Near Optimal: 100-129 mg/dL Borderline High: 130-159 mg/dL High: 160-189 mg/dL Very High: >189 mg/dL 40 , Pediatric (<=12yrs) or Maternal?: NO 41 Serum levels of PSA measured using the Leena Laiyaoyao DXI Hybritech immunoassay should not be interpreted as absolute evidence of the presence or absence of disease. The PSA value should be used in conjunction with other pertinent clinical diagnostic procedures. The values obtained with different assay methods or kits cannot be used interchangeably. 42 Test Performed by: [place] [address] [employer]: Ezio Comer II, M.D., Ph.D. 43 Because ethnic data is not always readily [...] 15-29 5 Kidney failure <15 (or dialysis) 44 Adult Reference Ranges for Cortisol, Free, LC/MS/MS: 8:00 - 10:00 AM 0.07-0.93 mcg/dL 4:00 - 6:00 PM 0.04-0.45 mcg/dL 10:00 - 11:00 PM 0.04-0.35 mcg/dL Test Performed by: [facility] [address] [place] [phone] 45 REFERENCE VALUE 44-261 (Normotensive) <400 (Hypertensive) 46 REFERENCE VALUE 128-484 (Normotensive) <900 (Hypertensive) 47 REFERENCE VALUE 222-680 (Normotensive) <1300 (Hypertensive) 48 Test Performed by: [place] [address] [employer]: Ezio Comer II, M.D., Ph.D. 49 Test Performed by: [place] [address] [employer]: Ezio Comer II, M.D., Ph.D. 50 Test Performed by: [place] [address] [employer]: Ezio Comer II, M.D., Ph.D. 51 Warning: A positive result is not useful for establishing a diagnosis of syphilis. In most situations, such a result may reflect a prior treated infection; a negative result can exclude a diagnosis of syphilis except for incubating or early primary disease. 52 It is recognized that currently available assays for the detection of antibodies to HIV-1 and/or HIV-2 may not detect all infected individuals. HIV antibodies may be undetectable in some stages of the infection and in some clinical conditions. The performance of this assay has not been established for populations of infants or children. Assayed by Chemiluminescence Microparticle Immunoassay on the Siemens Advia Centaur CP. Values obtained with different methods or kits cannot be used interchangeably.The diagnostic specificity of the ADVIA Centaur 1/O/2 Enhanced assay in the low risk population was 99.90% (6052/6058) with a 95% confidence interval of 99.78 to 99.96%. 53 Serum levels of PSA measured using the Leena Ignacio DXI Hybritech immunoassay should not be interpreted as absolute evidence of the presence or absence of disease. The PSA value should be used in conjunction with other pertinent clinical diagnostic procedures. The values obtained with different assay methods or kits cannot be used interchangeably. 54 Because ethnic data is not always readily [...] 15-29 5 Kidney failure <15 (or dialysis) 55 Normal Range 180 to 914 Indeterminate Range 145 to 180 Deficient Range <145 56 Interpretation: 10-19 ng/mL (mild to moderate deficiency) REFERENCE VALUE 25-HYDROXY D TOTAL (D2+D3) Optimum levels in the healthy population are 20-50, patients with bone disease may benefit from higher levels within this range. Test Performed by: [address] [address] [employer]: Ezio Comer II, M.D., Ph.D. 57 Female urine specimens have been self-validated by [facility] and have been granted conditional assay approval by [facility]. 58 RUN DATE: 11/05/13 [facility] LIVE PAGE 1 RUN TIME: [address] [place] [address] Specimen Inquiry Name: KHADIJAH CHANEY : [address]: Luke Zimmerman MD Acct: [id number] Unit: [id number] AGE: 58 Location: ENDO Re11/04/13 SEX: M Status: REG REF SPEC: [id number] RORO: 11/04/13- SUBM DR: Luke Zimmerman MD REQ: [id number] RECD: 11/04/13-1026 STATUS: KARINE MEDINA DR: Livier Edwards MD _ ORDERED: LEVEL IV FINAL DIAGNOSIS Colon, ascending, biopsy: A. Tubular adenoma. B. No high grade dysplasia or malignancy. CLINICAL HISTORY Screening colonoscopy with personal history of colon polyps POST-OPERATIVE DIAGNOSIS Screening colonoscopy to terminal ileum - polyp ascending, biopsied, tics GROSS DESCRIPTION The specimen is received in formalin labeled Khadijah Chaney Ascending Colon Polyp Biopsy, and consists of a 0.4 x 0.3 x 0.3 cm. shrestha-pink, irregular soft tissue fragment. Submitted entirely, one cassette. Signed (signature on file) Petr Colbert MD 1400 END OF REPORT * ML=Testing performed at Main Lab DEPARTMENT OF PATHOLOGY, [address] [place] [address] Petr Colbert M.D. Director [facility] Permit #[id number] 59 Because ethnic data is not always readily [...] 15-29 5 Kidney failure <15 (or dialysis) 60 HDL Interpretation: Undesirable: High Risk: Less than 40 mg/dL Desirable: Low Risk: Greater than 60 mg/dL 61 LDL Interpretation: Low Risk Optimal Level: LDL Less than 100 mg/dL Near or Above Optimal: LDL 100-129 mg/dL Borderline High Risk: LDL 130-159 mg/dL High Risk: LDL 160-189 mg/dL Very High Risk: LDL Greater than 189 mg/dL 62 Therapeutic target for the treatment of diabetes Mellitus patients is <7% HBA1C, and in selective patients <6.0%.Please refer to [place] [employer] Diabetic care guidelines for further information. 63 FASTING 64 FASTING 65 FASTING 66 FASTING 67 Interpretation: 10-19 ng/mL (mild to moderate deficiency) -- REFERENCE VALUE -- 25-HYDROXY D TOTAL (D2+D3) Optimum levels in the healthy population are 20-50, patients with bone disease may benefit from higher levels within this range. Test Performed by: [place] [id number] [employer]: Alex Bustillos III, M.D. 68 FASTING 69 It is recognized that currently available assays for the detection of antibodies to HIV-1 and/or HIV-2 may not detect all infected individuals. HIV antibodies may be undetectable in some stages of the infection and in some clinical conditions. The performance of this assay has not been established for populations of infants or children. Assayed by Chemiluminescence Microparticle Immunoassay on the Siemens Advia Centaur CP. Values obtained with different methods or kits cannot be used interchangeably.The diagnostic specificity of the ADVIA Centaur 1/O/2 Enhanced assay in the low risk population was 99.90% (6052/6058) with a 95% confidence interval of 99.78 to 99.96%. 70 POSSIBLE SKIN CONTAMINANT STREP VIRIDANS GROUP F^FEW^QTY 71 IgG band(s) ([place]): p41,p66 72 IgM band(s) ([place]): None detected 73 Specific serologic response to B. burgdorferi is not detected, but cannot rule out early infection during which low or undetectable antibody levels to B. burgdorferi may be present. If clinically indicated, a new serum specimen should be submitted in 7-14 days. Western blot should only be ordered on specimens that are positive or equivocal by a FDA-licensed Lyme disease antibody screening test (e.g., EIA). CDC criteria require >=5 bands for IgG or >=2 bands for IgM for the Western blot to be considered positive. Test Performed by: [facility] [address] [place] [address] [employer]: Alex Bustillos III, M.D. 74 ---- RUN DATE: 09/21/08 [facility] NMI LIVE PAGE 1 RUN TIME: 154 Specimen Inquiry RUN USER: INTERFACE -- Name: FREDDYSLDAEKHADIJAH Accnancie#: [id number] Status: REG REF Re09/19/08 Age/Sex: 53/M Unit#: [id number] Location: [facility]. : 59 -- Specimen: [id number] Spec Date: 09/19/[address]: Luke gaming MD Spec Type: SURGICAL P Received: 09/20/08-1238 Copies to: Jeferson Ndiaye MD SPECIMEN BIOPSY COLON POLYP AT 60 CM. HISTORY CLINICAL INFORMATION: Screening colonoscopy GROSS DESCRIPTION The specimen is received in formalin labelled Khadijah Chaney, Biopsy Cecum Polyp, and consists of three fragments of shrestha-yellow tissue, each measuring 0.2 x 0.2 x 0.2 cm. Submitted entirely, one cassette. DIAGNOSIS Colon, polyp at 60 cm., biopsy: A) Tubular adenoma. B) No high grade dysplasia or malignancy. Signed Electronically by: SERVANDO SHAH 09/21/08 1547 -- -- DEPARTMENT OF PATHOLOGY, [address] [place] [address] [facility] Permit #[id number] Petr Colbert M.D. Director Servando Shah M.D. Editing Intern Dir alecia -- 75 * SERUM LEVELS OF PSA MEASURED USING THE LEENA IGNACIO ACCESS HYBRITECH IMMUNOASSAY SHOULD NOT BE INTERPRETED ABSOLUTE EVIDENCE OF THE PRESENCE OR ABSENCE OF DISEASE. THE PSA VALUE SHOULD BE USED IN CONJUNCTION WITH OTHER PERTINENT CLINICAL DIAGNOSTIC PROCEDURES. 76 Anion gap measurement may be of limited value in the presence of any alkalosis, especially in a combined acid base disorder. . 77 Note change in reference range as of 06/16/08. The change was based on recommendations from the [place] [employer]. 78 Please note change in reference range effective 08 . 79 CHOLESTEROL INTERPRETATION: Desirable: Less than 200 MG/DL Borderline-High Risk: 200-239 MG/DL High-Risk: 240 MG/DL and over 80 HDL INTERPRETATION: Undesirable: High Risk: Less than 40 MG/DL Desirable: Low Risk: Greater than 60 MG/DL 81 LDL INTERPRETATION: Low Risk Optimal Level: LDL Less than 100 MG/DL Near or Above Optimal: LDL 100-129 MG/DL Borderline High Risk: LDL 130-159 MG/DL High Risk: LDL 160-189 MG/DL Very High Risk: LDL Greater than 189 MG/DL 82 * SERUM LEVELS OF PSA MEASURED USING THE LEENA IGNACIO ACCESS HYBRITECH IMMUNOASSAY SHOULD NOT BE INTERPRETED ABSOLUTE EVIDENCE OF THE PRESENCE OR ABSENCE OF DISEASE. THE PSA VALUE SHOULD BE USED IN CONJUNCTION WITH OTHER PERTINENT CLINICAL DIAGNOSTIC PROCEDURES. A PSA value in the range of 0.1 to 0.6 ng/ml is indeterminate if being used as an indicator of recurrent or residual disease. . 83 Classification: Desirable . 84 CALCULATED LDL APPROXIMATES THE VALUE OF A DIRECT LDL MEASUREMENT. Classification: Near or above optimal . Procedures Date Code Description Status 10/27/2018 [id number] Colonoscopy Completed 01/03/2016 02941 EKG, at Least 12 Leads w/Interpretation and Report Completed 07/07/2014 68377 I&D Of Abscess Completed 12/16/2008 91056 Aspiration/Injection Intermediate Joint, Bursa, Completed Ganglion Cyst 09/06/2008 02548 EKG, at Least 12 Leads w/Interpretation and Report Completed Encounters Type Date Location Provider Dx Diagnosis Office Visit 09/12/2018 Main Office Sunny H01.119 Allergic dermatitis 11:15a MD Eduardo of unspecified eye, unspecified eyelid Office Visit 09/01/2018 [facility] M25.512 Pain in left 11:30a III, ACCIDENT INVESTIGATOR-C shoulder H01.119 Allergic dermatitis of unspecified eye, unspecified eyelid Office Visit 08/06/2018 11:15a Main Office Livier Edwards M.D. R12 Heartburn C61 Malignant neoplasm of prostate E53.8 Deficiency of other specified B group vitamins E55.9 Vitamin D deficiency, unspecified M15.0 Primary generalized (osteo)arthritis Office Visit 03/31/2018 4:00p Main Office Livier Alcaraz E53.8 Deficiency of other Shubham Edwards specified B group vitamins E55.9 Vitamin D deficiency, unspecified Z11.3 Encntr screen for infections w sexl mode of transmiss C61 Malignant neoplasm of prostate Office Visit 11/26/2017 11:15a Main Office Livier Alcaraz R82.99 Other abnormal Shubham Edwards findings in urine Z11.3 Encntr screen for infections w sexl mode of transmiss E53.8 Deficiency of other specified B group vitamins E55.9 Vitamin D deficiency, unspecified R97.20 Elevated prostate specific antigen [PSA] Office Visit 09/24/2017 2:45p Main Office Livier Alcaraz Z00.01 Encounter for Shubham Edwards general adult medical exam w abnormal findings M25.519 Pain in unspecified shoulder G47.30 Sleep apnea, unspecified I71.2 Thoracic aortic aneurysm, without rupture R05 Cough E55.9 Vitamin D deficiency, unspecified E53.8 Deficiency of other specified B group vitamins Z12.5 Encounter for screening for malignant neoplasm of prostate Office Visit 03/26/2017 11:45a Main Office Livier Edawrds M.D. 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 J06.9 Acute upper respiratory infection, unspecified L57.0 Actinic keratosis M25.561 Pain in right knee Office Visit 12/23/2016 12:00p Main Office Livier Alcaraz Z23 Encounter for Shubham Edwards immunization R12 Heartburn J30.89 Other allergic rhinitis Z71.9 Counseling, unspecified V05.3 Viral Hepatitis Vaccination & Inoculation Z23 Encounter for immunization Z12.5 Encounter for screening for malignant neoplasm of prostate Office Visit 07/22/2016 Main Office Sunny M17.9 Osteoarthritis of 11:00a MD Eduardo knee, unspecified Office Visit 02/27/2016 Main Office Livier Alcaraz M25.561 Pain in right knee 4:30p Shubham Edwards Z01.818 Encounter for other preprocedural examination Office Visit 01/03/2016 9:30a Main Office Livier Alcaraz Z00.01 Encounter for Shubham Edwards general adult medical exam w abnormal findings M25.561 Pain in right knee 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 uncertain behavior of right adrenal gland E55.9 Vitamin D deficiency, unspecified E53.9 Vitamin B deficiency, unspecified M25.561 Pain in right knee R97.2 Elevated prostate specific antigen [PSA] Office Visit 04/03/2015 11:00a Main Office Livier Alcaraz 237.2 Neoplasm Uncertain Jerry, MToyDToy Adrenal Gland 268.9 Vitamin D Deficiency Unspec 266.9 Vitamin B Deficiency Unspec 314.00 Attention Deficit Disorder W/O Mention Of Hyperactivity 702.0 Actinic Keratosis Office Visit 12/28/2014 10:15a Main Office Livier Alcaraz V70.0 Examination General Shubham Edwards Medical Routine AT Health Care Facility 237.2 Neoplasm Uncertain Adrenal Gland 268.9 Vitamin D Deficiency Unspec 266.9 Vitamin B Deficiency Unspec 553.1 Hernia Umbilical 314.00 Attention Deficit Disorder W/O Mention Of Hyperactivity 272.0 Hypercholesterolemia Pure 719.46 Pain Joint Lower Leg 333.94 Restless Leg Syndrome V74.5 Screening Examination Venereal Disease 702.0 Actinic Keratosis 600.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 Office Visit 09/12/2014 4:15p Main Office Mahesh Friedman 789.32 Swelling Mass Or Lump Storm, ACCIDENT INVESTIGATOR-C Abdominal/Pelvic LT Upper Quadrant Office Visit 07/07/2014 11:30a Main Office Livier Alcaraz 682.2 Cellulitis & Abscess Shubham Edwards Trunk V65.49 Counseling Other Spec V05.3 Viral Hepatitis Vaccination & Inoculation V06.1 Lzovjsafzp-Ifudxcb-Xquslaaf Combined (DTaP) V04.81 Need For Prophylactic Vaccination & Inoculation/Influenza Office Visit 12/13/2013 3:45p Main Office Crystal Finney, 724.5 Backache Unspec ACCIDENT INVESTIGATOR-C Office Visit 11/25/2013 11:30a Main Office Livier Edwards, 466.0 Bronchitis Acute M.D. 268.9 Vitamin D Deficiency Unspec Office Visit 08/20/2013 9:30a Main Office Crystal Finney, 782.9 Skin & Integumentary ACCIDENT INVESTIGATOR-C Tissue Other Symptoms Office Visit 03/10/2013 2:15p Main Office Livier Alcaraz V70.0 Examination General Shubham Edwards Medical Routine AT Health Care Facility 272.0 Hypercholesterolemia Pure 314.00 Attention Deficit Disorder W/O Mention Of Hyperactivity 799.81 Decreased Libido 719.46 Pain Joint Lower Leg 477.9 Rhinitis Allergic Cause Unspec Office Visit 10/01/2010 11:15a Main Office Livier Edwards, 466.0 Bronchitis Acute M.D. 692.89 Dermatitis Due To Spec Agents Other Office Visit 11/03/2008 10:00a Main Office Jeferson Ndiaye M.D. 729.5 Pain In Limb Office Visit 09/06/2008 8:45a Main Office Jeferson Ndiaye M.D. V70.0 Examination General Medical Routine AT Health Care Facility 272.0 Hypercholesterolemia Pure 314.00 Attention Deficit Disorder W/O Mention Of Hyperactivity 786.2 Cough 786.50 Pain Chest Unspec 553.29 Hernia Ventral Other 553.1 Hernia Umbilical V06.8 Combination Diseases Other Vaccination & Inoculation Office Visit 05/10/2005 3:45p Main Office Crystal Márquez, 724.2 Lumbago M.D. Office Visit 02/19/2005 4:30p Main Office Livier Alcaraz 314.00 Attention Deficit Blegen MToyDToy Disorder W/O Mention Of Hyperactivity 719.46 Pain Joint Lower Leg Office Visit 01/15/2005 4:15p Main Office Livier Alcaraz 314.00 Attention Deficit Blegen MToyDToy Disorder W/O Mention Of Hyperactivity Office Visit 12/25/2004 3:30p Main Office Livier Alcaraz 314.00 Attention Deficit Blegen MToyDToy Disorder W/O Mention Of Hyperactivity 790.6 Abnormal Blood Chemistry Other Office Visit 11/27/2004 3:15p Main Office Livier Alcaraz 314.00 Attention Deficit BleShubham guadarrama Disorder W/O Mention Of Hyperactivity V17.3 History Family Ischemic Heart Disease Office Visit 12/12/2003 10:45a Main Office Cyndy George 724.5 Backache Unspec Arely Jama Office Visit 11/05/2002 8:30a Main Office Keerthi Godfrey, V70.[address] OFFICE ASSISTANT Medical Routine AT Health Care Facility Plan of Treatment 11/13/2018 - Mahesh Alston, [facility]-CJ02.9 Acute pharyngitis, unspecifiedNew Medication:Carafate 1 GM/10ML - 10ml by mouth four times daily if neededLidocaine Viscous 2 % - paint up to 1 teaspoon on the sore area three times a day as neededComments:can use carafate to coat the Uvula, lidocaine for anesthetic ... follow as ijzitfS71.30 Sleep apnea, unspecifiedComments:concern for sleep apnea, will refer for sleep studyReferral:Tiffany Faustin, Pulmonary MedicineFollow up:refer to Dr Faustin
[2018-12-01] MEDS ORDERED: Famotidine IV* 10 MG/ML 2 ML (20 mg) IV ONE (06:00)
[2018-12-01] MEDS ORDERED: Lactated Ringers 1000 ML Bag* 1,000 ML IV SCH ×2 (06:00→11:00)
[2018-12-01] MEDS ORDERED: Famotidine IV* 10 MG/ML 2 ML (20 mg) ONE (06:44)
[2018-12-01] MEDS ORDERED: Bupivacaine 0.5% W/EPI SDV* 30 ML VIAL ONE (06:45)
[2018-12-01] MEDS ORDERED: Rocuronium* 10 MG/ML VIAL ONE ×3 (07:26→09:57)
[2018-12-01] MEDS ORDERED: Succinylcholine* 20 MG/ML 10 ML VIAL ONE (07:27)
[2018-12-01] MEDS ORDERED: Midazolam* 1 MG/ML 5 ML VIAL (5 MG) ONE (07:34)
[2018-12-01] MEDS ORDERED: fentaNYL* 50 MCG/ML 2 ML VIAL (100 MCG VIAL) ONE ×2 (07:34→07:49)
[2018-12-01] MEDS ORDERED: Ketorolac INJ* 30 MG/ML 1 ML VIAL ONE (08:46)
[2018-12-01] MEDS ORDERED: Ondansetron INJ* 2 MG/ML VIAL ONE (08:46)
[2018-12-01] MEDS ORDERED: Propofol* 10 MG/ML 20 ML BTL ONE (08:46)
[2018-12-01] MEDS ORDERED: DiMENhydriNATE IV* 50 MG/ML VIAL ONE (08:46)
[2018-12-01] MEDS ORDERED: Phenylephrine IV* 40 MCG/ML 10 ML SYRINGE ONE (08:46)
[2018-12-01] MEDS ORDERED: Dexamethasone IV* 4 MG/ML 1 ML (4 MG) ONE (08:46)
[2018-12-01] MEDS ORDERED: Naloxone* 0.4 MG/ML 1 ML VIAL IV PRN (09:10)
[2018-12-01] MEDS ORDERED: Acetaminophen IV 1GM/100ML * 1,000 MG/100 ML VIAL IVPB ONE (09:10)
[2018-12-01] MEDS ORDERED: DiMENhydriNATE IV* 50 MG/ML VIAL IV PUSH PRN (09:10)
[2018-12-01] MEDS ORDERED: HYDROmorphone INJ1* 1 MG/ML SYRINGE ONE ×2 (09:49→10:32)
[2018-12-01] MEDS ORDERED: Glycopyrrolate IV* 0.2 MG/ML 1 ML VIAL ONE (10:26)
[2018-12-01] MEDS ORDERED: Neostigmine Methylsulfate* 1 MG/ML 10 ML VIAL (1 mg/ml) ONE (10:26)
[2018-12-01] MEDS ORDERED: Acetaminophen IV 1GM/100ML * 100 ML ONE (10:32)
[2018-12-01] MEDS ORDERED: Acetaminophen TAB* 325 MG PO PRN (10:49)
[2018-12-01] MEDS ORDERED: Ondansetron INJ* 2 MG/ML VIAL IV PRN (10:49)
--- NOTE | 2018-12-01 10:58 | BRIEFOPN ---
Brief Operative Note - Surgery Procedures: PREOP DX: TRANSVERSE COLON POLYP POSTOP DX: SAME AND UMBILICAL HERNIA PROC: LAPAROSCOPIC ASSISTED WEDGE RESECTION OF TRANSVERSE COLON POLYP WITH INTRAOPERATIVE COLONOSCOPY AND UMBILICAL HERNIA REPAIR SURG: MECENAS ASSIST: YESI ANES: GET; GISELA EBL: <50 ML IVF: CRYSTALLOID SPEC: TRANSVERSE COLON POLYP DRAIN/COMPL: NONE COND: STABLE TO RR, EXTUBATED.
[2018-12-01] MEDS: HYDROmorphone INJ1* 1 MG/ML SYRINGE IV PRN ×2 (11:18→11:25)
[2018-12-01] MEDS: Ketorolac INJ* 30 MG/ML 1 ML VIAL IV PRN (13:08)
[2018-12-01] MEDS: Heparin VIAL(*) 5000 UNITS/ML VIAL (FIVE THOUSAND) SUBCUT SCH ×2 (14:22→23:40)
[2018-12-01] MEDS: oxyCODONE/Acetamin 5/325 MG* TAB PO PRN ×2 (15:07→19:50)
--- NOTE | 2018-12-01 19:32 | PRO ---
DATE OF PROCEDURE: 12/01/18 - ROOM #340 SURGEON: Demetrius Jha MD ANESTHESIA: General. PREOPERATIVE DIAGNOSIS: Tubulovillous adenoma, proximal transverse colon. POSTOPERATIVE DIAGNOSIS: Tubulovillous adenoma, proximal transverse colon. PROCEDURE: Intraoperative colonoscopy. This procedure was performed intraoperatively during diagnostic laparoscopy with Dr. Queen. Please see his separate dictated note. ESTIMATED BLOOD LOSS: None. SPECIMENS: None. COMPLICATIONS: None. DESCRIPTION OF PROCEDURE: The patient was under general anesthetic and had had the transverse colon and right hepatic flexure mobilized surgically to identify the site of the tattoo of the previous polyp noted on colonoscopy several weeks ago. Biopsies had shown this to be a tubulovillous adenoma, not amenable to endoscopic resection. The adult Olympus video endoscope was inserted into the anal canal and without difficulty was advanced around to the cecum. The preparation throughout, however, was only fair with some thicker bilious fluid with some chunks of residue noted, but we were able to pass the endoscope into the cecum where we identified the ileocecal valve and appendiceal orifice. The endoscope was withdrawn and at approximately 80 to 90 cm of what appeared to be the proximal transverse colon, we identified the tattoo that had been previously placed. Here, we noted a sessile carpet-like polyp, which was approximately 2 cm x 3 cm overlying a fold. On manipulation using the laparoscopic instruments, there was concern that this was on the antimesenteric border. I did place the snare through the endoscope and see the feasibility of a snare polypectomy; however, the borders were somewhat difficult to identify and the fact that it was overlying a fold and its location, felt that this was not amenable to further endoscopic treatment. Thus, the decision was made to proceed with a surgical resection after discussion with Dr. Queen. The endoscope was withdrawn. Noted in the sigmoid colon were multiple diverticula, which had been seen on the previous colonoscopy. The endoscope was withdrawn. The patient tolerated this portion of the procedure well. [id number]/[facility] #: [id number] MTDD
--- NOTE | 2018-12-01 23:08 | OP ---
CC: Luek Zimmerman MD; Livier Edwards MD * DATE OF OPERATION: 12/01/18 - ROOM #340 DATE OF : 59 SURGEON: Jeferson Queen MD CO-SURGEON: Dr. Jha. ANESTHESIOLOGIST: Dr. Christian. ANESTHESIA: General endotracheal. PRE-OP DIAGNOSIS: Transverse colon polyp. POST-OP DIAGNOSES: 1. Transverse colon polyp. 2. Umbilical hernia. OPERATIVE PROCEDURE: Laparoscopic-assisted wedge resection of a transverse colon polyp with intraoperative colonoscopy and umbilical hernia repair. ESTIMATED BLOOD LOSS: Less than 50 mL. IV FLUIDS: 2 L of crystalloid. SPECIMEN: Transverse colon polyp. DRAINS: None. COMPLICATIONS: None. COUNTS: The instrument, needle, and sponge counts were correct. DESCRIPTION OF PROCEDURE: The patient was brought to the operating room and placed on the table supine. Sequential compression devices were placed on both lower extremities. General anesthesia was administered and a Sorensen catheter was placed. He was positioned split leg on the table. He was prepped and draped in the usual sterile fashion and he received appropriate intravenous antibiotics and time-out was performed. Local anesthetic was infiltrated into the skin and soft tissue prior to making each incision. Entry to the abdomen was through a transumbilical incision utilizing curvilinear infraumbilical incision due to the presence of an umbilical hernia. The peritoneal cavity was accessed through the umbilical hernia defect and a 12-mm trocar was placed and carbon dioxide was insufflated to a pressure of 15 mmHg. There was a large amount of intraperitoneal fat. A generous omentum was noted. There was no transverse colon immediately able to be identified due to the adipose tissue. A series of 5-mm trocars were placed, one in the right mid abdomen, one in the left lower quadrant, and one in the left upper quadrant. Utilizing LigaSure, the omentum which was adherent to the mesentery of the transverse colon was elevated and the gastrocolic ligament divided and mobilization proceeded from the mid transverse colon proximally with takedown of the hepatic flexure. The duodenum was identified and preserved. During this dissection, the area of tattooing was identified within the [id number] transverse colon. After completing this dissection, the colonoscopy was performed by Dr. Jha and is dictated in his report separately. It was determined that the polyp would not be amenable to endoscopic removal but was well localized. The decision was made then to create a small upper midline laparotomy incision and an Leopoldo retractor was placed. The transverse colon was drawn up into the wound and then the colotomy was made along the antimesenteric taenia and the polyp was immediately identified along the cephalad wall of the transverse colon about half way between the mesentery and the antimesenteric portion of the colon. The polyp was about 2.5 cm x 2 cm sessile. It was decided to excise this in a wedge fashion taking full thickness of the colon. The colon was then closed in a transverse fashion with two firings of the TA blue stapler with stay sutures placed to triangulate the colon in order not to impinge upon the lumen. After assuring hemostasis, the bowel was returned to the abdominal cavity. The midline incision was closed with #1 PDS double-stranded running. The trocars were all removed. The umbilical hernia repair was then performed by dissecting the umbilical stalk free from anterior abdominal wall and freshening the edges of the hernia defect. This defect was closed in transverse direction with 0 Ethibond suture using two [id number] sutures and a simple suture to complete the closure. The umbilical stalk was reapproximated with 3-0 Vicryl to the anterior abdominal wall and then skin incisions were all closed with jovani. Dressings were applied. The patient tolerated this procedure well and was extubated and transferred then to the recovery room in stable condition. [id number]/[facility] #: [id number] VENECIA
[2018-12-02] MEDS: Ketorolac INJ* 30 MG/ML 1 ML VIAL IV PRN ×3 (00:18→15:23)
[2018-12-02] MEDS: oxyCODONE/Acetamin 5/325 MG* TAB PO PRN ×4 (00:18→12:52)
[2018-12-02] MEDS: Heparin VIAL(*) 5000 UNITS/ML VIAL (FIVE THOUSAND) SUBCUT SCH ×2 (05:36→15:13)
[2018-12-02] MEDS ORDERED: Ascorbic Acid TAB* 500 MG PO SCH (09:00)
[2018-12-02] MEDS ORDERED: Amphetamine MIXED SALT TAB* 10 MG TAB PO SCH (09:00)
[2018-12-02] MEDS ORDERED: Pantoprazole TAB * 40 MG TAB PO SCH (09:00)
[2018-12-02 11:54] VITALS: BP 119/70
--- NOTE | 2018-12-02 14:20 | PN ---
Progress Note - Progress Note Date of Service: 12/02/18 Note: Seen earlier by Dr. Queen. Examined by myself at bedside. Would like to go home and meets criteria. Instructions reviewed. See full dictated discharge summary.
--- NOTE | 2018-12-02 18:55 | DS ---
CC: Dr. Livier Edwards; Dr. Luke Zimmerman * DISCHARGE SUMMARY: DATE OF ADMISSION: 12/01/18 DATE OF DISCHARGE: 12/02/18 ATTENDING SURGEON: Dr. Jeferson Queen * (RUBY Mix dictating) HOSPITAL COURSE: Please refer to admission history and physical and operative note for details. The patient was taken to the operating room on 12/01/18 where he underwent laparoscopic assisted colon polypectomy with Dr. Queen. Other than some periods of hypopnea (the patient has untreated sleep apnea) which required monitoring, he has otherwise had an uneventful postoperative course. He was seen earlier today by Dr. Queen. He was tolerating a full liquid diet. He has been passing flatus. The pain is well controlled with oral medication. PHYSICAL EXAM: On exam, temperature 97.9, blood pressure 119/70, pulse 67, respirations 16, oxygen saturation on supplemental O2 is 96% to 98%. Abdominal exam reveals laparoscopic incision sites as well as upper midline incision and subumbilical incision from a hernia repair. There is some mild erythema along the 2 midline incisions and a bit of duskiness on the upper skin flap of the umbilical incision. We will keep a close eye on these. At this point, incisions are otherwise intact with no active drainage. Abdomen is soft and nontender other than an expected incisional tenderness. IMPRESSION: Status post laparoscopic assisted colon polypectomy (pathology pending). Ready for discharge. PLAN: Discharge home. Instructions were reviewed regarding wound care, diet, and activity. He has followup scheduled in our office on 12/10/18. RUBY MIX [id number]/[facility] #: [id number] MTDMiriam
== END 2018-12-02 15:34 | disposition home or self-care (01) ==
LOC: AA 05:48 → INTOOBSV 05:48 → SSU 12:23
PROVIDERS: ADMIT Surgery; ATTEND Surgery
DX: K63.5 Polyp of colon (principal); K42.9 Umbilical hernia without obstruction or gangrene; D12.3 Benign neoplasm of transverse colon; G47.33 Obstructive sleep apnea (adult) (pediatric); K21.9 Gastro-esophageal reflux disease without esophagitis; M19.90 Unspecified osteoarthritis, unspecified site; F90.9 Attention-deficit hyperactivity disorder, unspecified type
CPT/HCPCS: 88305; 96374; 96375; 96376; A9270-GY; G0378; J0330; J1100; J1170; J1240; J1335; J1644; J1885; J2250; J2405; J2704; J2710; J3010

== ENCOUNTER 2023-04-25 09:40 | Inpatient (IN) ==
[2023-04-25] MEDS ORDERED: Adenosine 3 MG/ML 2 ml VIAL (6 mg) IV PUSH ONE (09:57)
[2023-04-25] MEDS ORDERED: Metoprolol Tartrate 5 mg VIAL 5 ml VIAL (1 mg/ml) IV ONE (09:58)
[2023-04-25 10:07] LABS: ABS Eosinophils 0.1 10^3/uL (0.0-0.5); ABS Lymphocytes 1.6 10^3/uL (1.0-4.8); ABS Monocytes 0.6 10^3/uL (0.0-1.1); ABS Neutrophils 3.5 10^3/uL (1.5-7.6); ABS Nucleated RBC 0.02 10^3/ul; Eosinophil % 1.2 %; Hematocrit 53.1 % (38-53); Hemoglobin 18.2 g/dL (13.2-16.3); Lymphocyte % 27.1 %; Mean Corpuscular Hemoglobin 32.7 pg (27-33); Mean Corpuscular Hgb Conc 34.2 g/dL (31-36); Mean Corpuscular Volume 95.7 fL (80-97); Mean Platelet Volume 9.1 fL (7.5-11.2); Nucleated Red Blood Cells % 0.3 /100 WBC (0.0-0.4); Platelet Count 175 10^3/uL (150-450); Red Blood Count 5.55 10^6/uL (4.06-5.63); Red Cell Distribution Width 14.8 % (12-17); White Blood Count 5.9 10^3/uL (3.6-10.2)
[2023-04-25 10:11] LABS: INR 1.26 (0.88-1.18)
[2023-04-25] MEDS ORDERED: Magnesium Sulfate 2 gm BAG 2 GM/50 ML BAG IVPB ONE (10:16)
[2023-04-25 10:28] LABS: Magnesium 2.1 mg/dL (1.9-2.7)
[2023-04-25 10:42] LABS: High Sens Troponin Baseline 58 pg/mL (<20)
[2023-04-25 10:43] LABS: Albumin 4.9 g/dL (3.2-5.2); Calcium 10.1 mg/dL (8.6-10.3); Potassium 4.6 mmol/L (3.5-5.0)
[2023-04-25 10:49] LABS: Albumin/Globulin Ratio 1.6 (1-3); Creatinine, Serum 1.24 mg/dL (0.67-1.17); Total Protein 7.9 g/dL (6.4-8.9); eGFR CKD-EPI 64.1 (>60)
[2023-04-25 11:39] LABS: High Sensitivity Troponin 1 Hr 52 pg/mL (<20)
[2023-04-25] MEDS ORDERED: Cholecalciferol (VIT D3) 1,000 unit TAB PO SCH (15:00)
[2023-04-26 05:51] LABS: ABS Eosinophils 0.2 10^3/uL (0.0-0.5); ABS Lymphocytes 1.5 10^3/uL (1.0-4.8); ABS Monocytes 0.6 10^3/uL (0.0-1.1); ABS Neutrophils 2.1 10^3/uL (1.5-7.6); ABS Nucleated RBC 0.01 10^3/ul; Eosinophil % 3.5 %; Hematocrit 46.3 % (38-53); Hemoglobin 16.1 g/dL (13.2-16.3); Lymphocyte % 33.5 %; Mean Corpuscular Hemoglobin 32.9 pg (27-33); Mean Corpuscular Hgb Conc 34.8 g/dL (31-36); Mean Corpuscular Volume 94.7 fL (80-97); Mean Platelet Volume 9.1 fL (7.5-11.2); Nucleated Red Blood Cells % 0.2 /100 WBC (0.0-0.4); Platelet Count 131 10^3/uL (150-450); Red Blood Count 4.89 10^6/uL (4.06-5.63); Red Cell Distribution Width 14.3 % (12-17); White Blood Count 4.4 10^3/uL (3.6-10.2)
[2023-04-26 06:05] LABS: Creatinine, Serum 1.03 mg/dL (0.67-1.17); Magnesium 2.1 mg/dL (1.9-2.7); Potassium 4.2 mmol/L (3.5-5.0); eGFR CKD-EPI 80.1 (>60)
[2023-04-26] MEDS ORDERED: Aspirin EC 81 mg TAB.EC (enteric coated) PO SCH (09:00)
[2023-04-26] MEDS: Vitamin THERAPEUTIC TAB PO SCH (10:12)
[2023-04-27 06:03] LABS: Calcium 9.2 mg/dL (8.6-10.3); Creatinine, Serum 0.99 mg/dL (0.67-1.17); Magnesium 1.9 mg/dL (1.9-2.7); Potassium 4.4 mmol/L (3.5-5.0)
[2023-04-27] MEDS: Vitamin THERAPEUTIC TAB PO SCH (10:05)
[2023-04-27 11:26] VITALS: BP 112/70
[2023-04-28 12:25] LABS: Erythropoietin 11.7 mIU/mL (2.6 - 18.5)
== END 2023-04-27 14:10 | disposition home or self-care (01) | DRG 310 ==
LOC: EDHOLD 09:40 → ED 09:40 → SUATTDRO 12:20 → OBSVTOIN 12:20 → MEDTELE 13:42
PROVIDERS: ADMIT Internal Medicine; ATTEND Internal Medicine

== ENCOUNTER 2023-07-29 03:08 | Inpatient (IN) ==
[2023-07-29] MEDS ORDERED: Midazolam 2 mg/2 ml VIAL 1 mg/ml 2 ml VIAL (2 mg) ONE (03:26)
[2023-07-29] MEDS ORDERED: fentaNYL 100 mcg/2 ml 50 MCG/ML VIAL ONE (03:26)
[2023-07-29 04:00] LABS: ABS Eosinophils 0.1 10^3/uL (0.0-0.5); ABS Lymphocytes 2.3 10^3/uL (1.0-4.8); ABS Monocytes 0.5 10^3/uL (0.0-1.1); ABS Neutrophils 5.2 10^3/uL (1.5-7.6); ABS Nucleated RBC 0.03 10^3/ul; Eosinophil % 1.1 %; Hematocrit 51.6 % (38-53); Lymphocyte % 27.8 %; Mean Corpuscular Hemoglobin 33.8 pg (27-33); Mean Corpuscular Hgb Conc 34.9 g/dL (31-36); Mean Corpuscular Volume 96.8 fL (80-97); Mean Platelet Volume 9.3 fL (7.5-11.2); Nucleated Red Blood Cells % 0.3 /100 WBC (0.0-0.4); Platelet Count 161 10^3/uL (150-450); Red Blood Count 5.33 10^6/uL (4.06-5.63); White Blood Count 8.2 10^3/uL (3.6-10.2)
[2023-07-29 04:07] LABS: INR 1.12 (0.83-1.13)
[2023-07-29 04:14] LABS: Albumin 4.6 g/dL (3.2-5.2); Albumin/Globulin Ratio 1.6 (1-3); Calcium 9.9 mg/dL (8.6-10.3); Creatinine, Serum 1.52 mg/dL (0.67-1.17); Globulin 2.9 g/dL (2-4); Magnesium 2.2 mg/dL (1.9-2.7); Potassium 5.1 mmol/L (3.5-5.0); Total Bilirubin 0.9 mg/dL (0.2-1.0); Total Protein 7.5 g/dL (6.4-8.9); eGFR CKD-EPI 50.2 (>60)
[2023-07-29 04:38] LABS: TSH Ultra Thyroid Stim Horm 8.45 mcIU/mL (0.34-5.60)
[2023-07-29 04:56] LABS: High Sensitivity Troponin 1 Hr 50 pg/mL (<20)
[2023-07-29] MEDS ORDERED: fentaNYL 100 mcg/2 ml 50 MCG/ML VIAL IV SLOW PU ONE (06:36)
[2023-07-29] MEDS ORDERED: Midazolam 2 mg/2 ml VIAL 1 mg/ml 2 ml VIAL (2 mg) IV SLOW PU ONE (06:37)
[2023-07-29 07:03] LABS: Albumin 3.9 g/dL (3.2-5.2); Albumin/Globulin Ratio 1.6 (1-3); Calcium 9.2 mg/dL (8.6-10.3); Creatinine, Serum 1.21 mg/dL (0.67-1.17); Globulin 2.4 g/dL (2-4); Phosphorus 2.3 mg/dL (2.5-5.0); Total Bilirubin 0.9 mg/dL (0.2-1.0); Total Protein 6.3 g/dL (6.4-8.9)
[2023-07-29 08:04] LABS: High Sensitivity Troponin 1 Hr 83 pg/mL (<20)
[2023-07-29] MEDS: Aspirin EC 81 mg TAB.EC (enteric coated) PO SCH (10:20)
[2023-07-29] MEDS ORDERED: Potassium & Sodium Phos 250 mg = 1 PACKET PO ONE (13:18)
[2023-07-30 05:57] LABS: Calcium 8.9 mg/dL (8.6-10.3); Creatinine, Serum 0.95 mg/dL (0.67-1.17); Magnesium 1.7 mg/dL (1.9-2.7); Potassium 4.1 mmol/L (3.5-5.0); eGFR CKD-EPI 88.3 (>60)
[2023-07-30] MEDS: Aspirin EC 81 mg TAB.EC (enteric coated) PO SCH (08:26)
[2023-07-30] MEDS ORDERED: Influenza vaccine *QUAD* *2023-24* 0.5 ML SYRINGE IM ONE (09:00)
[2023-07-30] MEDS ORDERED: Magnesium Sulfate 2 gm BAG 2 GM/50 ML BAG IVPB ONE (13:28)
[2023-07-31 06:37] LABS: ABS Eosinophils 0.1 10^3/uL (0.0-0.5); ABS Lymphocytes 1.4 10^3/uL (1.0-4.8); ABS Monocytes 0.5 10^3/uL (0.0-1.1); ABS Neutrophils 2.3 10^3/uL (1.5-7.6); Eosinophil % 2.4 %; Hematocrit 43.3 % (38-53); Hemoglobin 15.3 g/dL (13.2-16.3); Lymphocyte % 32.3 %; Mean Corpuscular Hemoglobin 33.7 pg (27-33); Mean Corpuscular Hgb Conc 35.4 g/dL (31-36); Mean Corpuscular Volume 95.3 fL (80-97); Mean Platelet Volume 9.1 fL (7.5-11.2); Platelet Count 131 10^3/uL (150-450); Red Blood Count 4.55 10^6/uL (4.06-5.63); Red Cell Distribution Width 14.6 % (12-17); White Blood Count 4.3 10^3/uL (3.6-10.2)
[2023-07-31 06:52] LABS: Calcium 9.4 mg/dL (8.6-10.3); Creatinine, Serum 0.81 mg/dL (0.67-1.17); Potassium 4.2 mmol/L (3.5-5.0); eGFR CKD-EPI 97.2 (>60)
[2023-07-31] MEDS: Aspirin EC 81 mg TAB.EC (enteric coated) PO SCH (08:54)
[2023-07-31 16:30] LABS: Magnesium 1.9 mg/dL (1.9-2.7)
[2023-08-01 06:05] LABS: ABS Eosinophils 0.2 10^3/uL (0.0-0.5); ABS Lymphocytes 1.4 10^3/uL (1.0-4.8); ABS Monocytes 0.6 10^3/uL (0.0-1.1); ABS Neutrophils 2.2 10^3/uL (1.5-7.6); ABS Nucleated RBC 0.01 10^3/ul; Eosinophil % 3.6 %; Hematocrit 46.3 % (38-53); Hemoglobin 16.4 g/dL (13.2-16.3); Lymphocyte % 31.3 %; Mean Corpuscular Hemoglobin 33.3 pg (27-33); Mean Corpuscular Hgb Conc 35.3 g/dL (31-36); Mean Corpuscular Volume 94.3 fL (80-97); Mean Platelet Volume 8.9 fL (7.5-11.2); Nucleated Red Blood Cells % 0.3 /100 WBC (0.0-0.4); Platelet Count 133 10^3/uL (150-450); Red Blood Count 4.91 10^6/uL (4.06-5.63); Red Cell Distribution Width 14.4 % (12-17); White Blood Count 4.4 10^3/uL (3.6-10.2)
[2023-08-01 06:22] LABS: Calcium 9.7 mg/dL (8.6-10.3); Creatinine, Serum 0.84 mg/dL (0.67-1.17); Magnesium 1.9 mg/dL (1.9-2.7); Potassium 4.1 mmol/L (3.5-5.0); eGFR CKD-EPI 96.2 (>60)
[2023-08-01] MEDS: Aspirin EC 81 mg TAB.EC (enteric coated) PO SCH (08:14)
[2023-08-01 11:14] LABS: HDL Cholesterol 63.2 mg/dL
[2023-08-01 11:25] LABS: Free T3 3.8 pg/mL (2.5-3.9)
[2023-08-01 11:26] LABS: Free T4 0.96 ng/dL (0.61-1.12)
[2023-08-01 16:20] VITALS: BP 119/79
== END 2023-08-01 15:15 | disposition home or self-care (01) | DRG 310 ==
LOC: ED 03:08 → MEDTELE 05:14 → SUATTDRO 05:14 → EDHOLD 05:14 → MEDTELE 16:03
PROVIDERS: ADMIT Hospitalist; ATTEND Internal Medicine